=== PATIENT | female | born 1970 | race Caucasian/White ===

== ENCOUNTER 2016-11-01 16:46 | Inpatient (IN) | payer BC ==
[~2016-11-01] VITALS: Ht 157.5 cm; Wt 57.7 kg
[~2016-11-01 16:46] MED LIST: ESCI1TAB10 PO; ESCI1TAB9 PO; FLUT0.0529 NAE; LAMO200T PO; MULT-506 PO; ROPI0.5T15 PO
--- NOTE | 2016-11-01 17:12 | EMERGENCY ROOM VISIT NOTE ---
History Report prepared by Trevon: Kassie Arreaga Under the Supervision of: Dr. Carolin Ware D.O. First contact with patient: 16:55 Chief Complaint: MENTAL HEALTH EVALUATION Stated Complaint: SUICIDAL THOUGHTS,SEVERE DEPRESSION,ANXIETY ATTACK History of Present Illness The patient is a 45 year old female who presents to the Emergency Room with complaints of persistent, worsening depression over the past two weeks. The patient notes that she has a history of depression, but states that for the last month and a half she has been off all of her medications. She states that she has only taken Requip for her restless leg syndrome. The patient states that over the past two weeks she has been increasingly depressed and has had increased thoughts of suicidal ideation. She states that she has been evaluated in the hospital for psychiatric reasons in the past. The patient states that she had been going to [employer] meetings recently. She states that for the past month she had not drank alcohol, but states that last evening she drank alcohol, but denies drinking any today. The patient states that her plan to follow through with her suicidal ideation would be to either do it with firearms or driving her car off the road. She states that she does not own any firearms. The patient states that she has tried harming herself with her alcohol use in the past. She denies any other drug use. The patient states that recently she has had more frequent menstrual cycles over the past several months. Source of History: patient Onset: past two weeks Position: other (global) Quality: other (depression) Timing: worsening, other (persistent) Note: Associated Symptoms: increased thoughts of suicidal ideation, increased alcohol use, stopped taking medications. Review of Systems See HPI for pertinent positives & negatives. A total of 10 systems reviewed and were otherwise negative. Past Medical & Surgical Medical Problems: (1) Anxiety (2) Asthma (3) Bipolar disorder (4) Migraine Surgical Problems: (1) H/O removal of cyst Family History Hypertension Social History Smoking Status: Current Every Day Smoker Alcohol Use: occasionally Drug Use: none Marital Status: Housing Status: lives with family Occupation Status: unemployed Current/Historical Medications Scheduled Multivitamin (Multivitamin), 1 TAB PO DAILY Ropinirole (Requip), 2 MG PO HS Scheduled PRN Fluticasone Propionate (Nasal) (Flonase), 2 SPRAYS DESEAN DAILY PRN for Congestion Allergies Coded Allergies: No Known Allergies (Verified , 3/3/17) Physical Exam Vital Signs Date Time Temp Pulse Resp B/P Pulse Ox O2 Delivery O2 Flow Rate FiO2 11/01/16 18:15 86 16 157/102 97 Room Air 11/01/16 16:51 37.1 104 18 169/104 96 Room Air Physical Exam HEENT: Head - normocephalic and atraumatic Pupils are equal, round, and reactive to light. Extraocular eye muscles are intact, and sclera are anicteric. Nose - moist nasal mucosa without discharge. Mouth - moist buccal mucosa. Oropharynx is nonerythematous and there is no tonsillar exudate or edema noted. Neck: Supple; no JVD, nuchal rigidity, cervical lymphadenopathy. Heart: Regular rate and rhythm. There is a normal S1 and S2 with no murmurs, clicks, or gallops appreciated. Lungs: Clear to auscultation bilaterally with no wheezes, rales, or rhonchi. Abdomen: Soft, completely nontender, nondistended, with good bowel sounds. There are no palpable pulsatile masses or hepatosplenomegaly. There is no guarding, rigidity, or rebound noted. Extremities: No evidence of cyanosis, clubbing, or edema. There are easily palpable peripheral pulses. Skin: warm and dry with good turgor and no rashes. Psych: Tearful at times admits to suicidal ideation with plan Medical Decision & Procedures Laboratory Results 11/01/16 17:31 11/01/16 17:31 Test 11/01/16 17:05 11/01/16 17:31 Urine Color DK YELLOW Urine Appearance CLOUDY (CLEAR) Urine pH 5.5 (4.5-7.5) Urine Specific [place] 1.031 (1.000-1.030) Urine Protein 2+ (NEG) Urine Glucose (UA) NEG (NEG) Urine Ketones 3+ (NEG) Urine Occult Blood 2+ (NEG) Urine Nitrite NEG (NEG) Urine Bilirubin NEG (NEG) Urine Urobilinogen NEG (NEG) Urine Leukocyte Esterase SMALL (NEG) Urine WBC (Auto) 10-30 /hpf (0-5) Urine RBC (Auto) 5-10 /hpf (0-4) Urine Hyaline Casts (Auto) 10-30 /lpf (0-5) Urine Epithelial Cells (Auto) >30 /lpf (0-5) Urine Bacteria (Auto) 1+ (NEG) Urine Test NEG (NEG) Urine Opiates Screen NEG (NEG) Urine Methadone, Qualitative NEG (NEG) Urine Barbiturates NEG (NEG) Urine Phencyclidine (PCP) Level NEG (NEG) Ur Amphetamine/Methamphetamine NEG (NEG) MDMA (Ecstasy) Screen NEG (NEG) Urine Benzodiazepines Screen NEG (NEG) Urine Cocaine Metabolite NEG (NEG) Urine Marijuana (THC) NEG (NEG) Red Blood Count 4.52 M/uL (4.2-5.4) Mean Corpuscular Volume 87.8 fL (80-100) Mean Corpuscular Hemoglobin 31.6 pg (25-34) Mean Corpuscular Hemoglobin Concent 36.0 g/dl (32-36) RDW Standard Deviation 45.2 fL (36.4-46.3) RDW Coefficient of Variation 14.0 % (11.5-14.5) Mean Platelet Volume 8.8 fL (7.4-10.4) Anion Gap 10.0 mmol/L (3-11) Est Creatinine Clear Calc Drug Dose 87.4 ml/min Estimated GFR () 125.1 Estimated GFR (Non- 108.0 BUN/Creatinine Ratio 35.3 (10-20) Calcium Level 9.2 mg/dl (8.5-10.1) Total Bilirubin 0.5 mg/dl (0.2-1) Direct Bilirubin 0.1 mg/dl (0-0.2) Aspartate Amino Transf (AST/SGOT) 18 U/L (15-37) Alanine Aminotransferase (ALT/SGPT) 21 U/L (12-78) Alkaline Phosphatase 101 U/L (45-117) Total Protein 7.4 gm/dl (6.4-8.2) Albumin 4.0 gm/dl (3.4-5.0) Thyroid Stimulating Hormone (TSH) 1.000 uIu/ml (0.300-4.500) Salicylates Level 2.6 mg/dl (2.8-20) Acetaminophen Level < 2 ug/ml (10-30) Ethyl Alcohol mg/dL < 3.0 mg/dl (0-3) Laboratory results per my review. Medications Administered Medications (Trade) Dose Ordered Sig/N[place] Route Start Time Stop Time Status Last Admin Dose Admin Potassium Chloride (Klor-Con M10) 20 meq NOW STAT PO 11/01/16 18:27 11/01/16 18:28 DC 11/01/16 19:02 20 MEQ Procedure The patient was treated with Potassium Chloride 20 meq PO. ED Course 170: Past medical records reviewed. The patient was evaluated in room A6. A complete history and physical exam was performed. Laboratory studies were drawn as above. 182: The patient had a low potassium. She was given Potassium Chloride 20 meq PO. She was felt to be medically cleared. 182: I reevaluated the patient and she is resting comfortably. I discussed the lab results with her. She is clear to be evaluated by Cory Morley. 183: Per Cory Morley, the patient will be ready to be taken to their floor shortly. She is willing to admit herself voluntarily. Medical Decision The patient is a 45 year old female who presents to the ED with worsening depression. Differential diagnosis includes alcohol abuse, mood disorder, thought disorder, suicidal ideation. Lab interpretation: normal white count, stable h&H, potassium of 3, BUN 23, creatinine 0.6, TSH 1, LFTs are normal, glucose 137, negative alcohol, negative Tylenol, negative urine tox screen, salicylate level 2.6, urine is negative, urinalysis appears significantly contaminated. This is a 45-year-old female patient with history of alcohol abuse who presents to the emergency department with worsening depression and suicidal thoughts. The patient had been sober for a month. However, last night, she began to drink alcohol again. She had thoughts of wanting to kill herself. She had planned to run her car off of the road. She admits that she is off all of her psychiatric medications. The patient's potassium was slightly low. She was given oral potassium replacement. Impression Primary Impression: Suicidal ideation Additional Impression: Hypokalemia Scribe Attestation The scribe's documentation has been prepared under my direction and personally reviewed by me in its entirety. I confirm that the note above accurately reflects all work, treatment, procedures, and medical decision making performed by me. Departure Information Dispostion [facility] Acute Care Referrals No Doctor, Assigned (PCP) Problem Qualifiers
[2016-11-01 17:22] LABS: PREG INTERNAL NEGATIVE QC NEG CLEAR BACKGROUND; PREG INTERNAL POSITIVE QC POS CONTROL LINE
[2016-11-01 17:23] LABS: URINE APPEARANCE CLOUDY (CLEAR); URINE BILIRUBIN NEG (NEG); URINE COLOR DK YELLOW; URINE EPITHELIAL CELL AUTO >30 /lpf (0-5); URINE NITRITE NEG (NEG); URINE PH 5.5 (4.5-7.5); URINE SPECIFIC GRAVITY 1.031 (1.000-1.030); UROBILINOGEN NEG (NEG)
[2016-11-01 17:24] LABS: MANUAL MICROSCOPIC REQUIRED? NO; REVIEW REQ? NO
[2016-11-01 17:43] LABS: HEMATOCRIT 39.7 % (37-47); MEAN CELL VOLUME 87.8 fL (80-100); MEAN CORPUSCULAR HEMOGLOBIN 31.6 pg (25-34); MEAN PLATELET VOLUME 8.8 fL (7.4-10.4); PLATELET COUNT 284 K/uL (130-400); RED BLOOD COUNT 4.52 M/uL (4.2-5.4); WHITE BLOOD COUNT 9.73 K/uL (4.8-10.8)
[2016-11-01 17:53] LABS: BENZODIAZEPINE, URINE NEG (NEG); COCAINE,URINE NEG (NEG); PHENCYCLIDINE, URINE NEG (NEG)
[2016-11-01 18:05] LABS: BUN/CREATININE RATIO 35.3 (10-20); CALCIUM 9.2 mg/dl (8.5-10.1); CREATININE 0.65 mg/dl (0.60-1.20)
[2016-11-01 18:15] VITALS: O2SAT 97
[2016-11-01 18:15] LABS: ACETAMINOPHEN < 2 ug/ml (10-30)
[2016-11-01] MEDS ORDERED: POTASSIUM CHLORIDE 10 MEQ TABCR PO STA (18:27)
[2016-11-01] MEDS ORDERED: NURSING VERBAL MED ORDER ONE ×2 (19:00→20:30)
[2016-11-01] MEDS ORDERED: hydrOXYzine HCL 25 MG TAB PO PRN (19:15)
[2016-11-01] MEDS ORDERED: SODIUM CHLORIDE 0.65% NA SOLN 45 ML (OCEAN) PRN (19:15)
[2016-11-01] MEDS ORDERED: BISMUTH SUBSALICYLATE PER ML OMNICELL CHARGE PO PRN (19:15)
[2016-11-01] MEDS ORDERED: ACETAMINOPHEN 325 MG TAB PO PRN (19:15)
[2016-11-01] MEDS ORDERED: MAGNESIUM HYDROXIDE SUSP 30 ML UDC PO PRN (19:15)
[2016-11-01] MEDS ORDERED: ALUMINUM/MAGNESIUM SUSP 30 ML UDC PO PRN (19:15)
[2016-11-01 19:43] VITALS: BP 153/98; PULSE 86; TEMP 37.2; Ht 157.5 cm; Wt 57.7 kg
[2016-11-01] MEDS: ROPINIROLE HCL 1 MG TAB PO SCH (21:12)
[2016-11-01] MEDS: hydrOXYzine HCL 25 MG TAB PO PRN (21:15)
[2016-11-02 06:58] VITALS: BP_SYST 131; BP_SYST 148; BP_DIAS 87; BP_DIAS 97; PULSE 75; PULSE 80; TEMP 36.8
[2016-11-02] MEDS: FLUTICASONE PROPIONATE NA SPR 16 GM BTL SCH (08:42)
[2016-11-02] MEDS: MULTIVITAMIN TAB PO SCH (08:42)
[2016-11-02] MEDS: NICOTINE 21 MG/24 HR TDSY TD SCH (08:42)
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
[2016-11-02] MEDS: hydrOXYzine HCL 25 MG TAB PO PRN (21:41)
[2016-11-02] MEDS: ROPINIROLE HCL 1 MG TAB PO SCH (21:41)
[2016-11-03 06:48] VITALS: BP_SYST 150; BP_SYST 151; BP_DIAS 87; BP_DIAS 94; PULSE 65; PULSE 72; TEMP 37
[2016-11-03] MEDS: NICOTINE 21 MG/24 HR TDSY TD SCH (07:46)
[2016-11-03] MEDS: MULTIVITAMIN TAB PO SCH (07:46)
[2016-11-03] MEDS: FLUTICASONE PROPIONATE NA SPR 16 GM BTL SCH (07:46)
--- NOTE | 2016-11-03 07:58 | Psychiatric Progress Notes ---
Progress Note Date of Service Nov 03, 2016. Interval History Violetta Pool is a 45-year-old female who lives in [place], has a history of bipolar type II, cluster B traits, alcohol dependence, anxiety disorder not otherwise specified, and noncompliance with treatment who presented to the emergency room with suicidal thoughts to shoot herself or drive her car off the road and was admitted on a 201 voluntary commitment. She dropped out of treatment and stop medications a couple of months ago. Chief Complaint "The groups have been good, trying to make myself talk, be honest". Subjective Patient was seen & assessed interval progress reviewed with nursing. Staff report she slept well with hydroxyzine, is hyperverbal and labile at times, laughing and then crying, and continues to report SI. She told staff she wished she had access to a gun. She talked about her financial strain, and ongoing problems with her whom she is . She is refusing a meeting with her ex/, but wants a meeting with her AA sponsor. She is bonding with her peers. She says she is pushing herself to talk in groups, as her AA sponsor encouraged her to be honest and try to get the most she can out of treatment. She says she is "being honest, which means dropping the f-bomb a lot, but if shit doesn't change, I'm gonna ...it needs to get fixed." She has been processing her reluctance to take medications, which she attributes to trying many medications over 30 years and feeling they didn't work for her, "every f---ink antidepressant on the face of the planet." Also feels she has "tried everything you're supposed to, exercising and everything, and it didn't work." She read the information on Depakote and is not sure she wants to try it. Asked multiple questions about it, and ultimately agreed to a trial. She is upset that "I have friends who are alcoholics and take Ativan and Xanax and stuff," and is upset that no one will give her benzos, saying "I've already tried all these mood stabilizers, why not take a more aggressive approach?" She reports SI is "the same, I woke up having a panic attack," and feels anxious thinking that "I have to leave." She says the treatment here is helpful, but she is worried about when she leaves and how she'll cope, due to financial problems and not knowing how to cope. She feels she needs to ask for financial help, but doesn't know where to go for that. Review of Systems +headache Sleep Information Total Hours of Sleep: 7.75 Meal Information Percent of Breakfast Consumed: 100 Percent of Lunch Consumed: 75 Percent of Dinner Consumed: 60 Mental Status Exam During interview pt is: alert and oriented, cooperative Appearance: appropriately dressed, other (finger and toenails painted red, bright lipstick, haird styled in side bun, carrying multiple beverages) Eye contact is: fair Motor behavior is: steady gait & station, no abnormal motor movements Speech: normal in rate, rhythm & volume (hyperverbal) Affect: other (dramatic, full range) Mood is: depressed Thought process: circumstantial Thought content: reality based without delusions Suicidal thought are: present, Plan: present, Intent: present (able to contract for safety on the unit, but not outside the hospital) Homicidal thoughts are: denied Hallucinations: denies auditory, denies visual Intelligence estimated to be: consistent with level of education Insight: impaired Judgement: impaired Impression white female with a history of bipolar type II, anxiety not otherwise specified, alcohol abuse, and cluster B traits who is been noncompliant with outpatient treatment at presents with worsening mood and suicidality after relapsing on alcohol and taking herself off medications. Inpatient treatment is recommended due to the risk of harm if discharged. Plan (1) Suicidal ideation -Every 15 minute checks for safety -Attend groups and participate in therapy -Work on healthy coping skills and her discharge safety plan -She is willing to have a family meeting with her AA sponsor, Imani. -Will need referral for outpatient providers - interested in [facility], and Dr Thompson. May also benefit from case management, if eligible. (2) Bipolar disorder -Discussed options for treatment, reviewing mood stabilizers, all of which she stated she had tried before and were ineffective, with the exception of Depakote. She is not sure if she wants to take medication, but discussed its role in treating mood and anxiety symptoms, and gave her a patient handout on the medication to review. 3/5 - Agreed to trial of Depakote. Will start 250mg bid and can consolidate to bedtime at discharge to limit daytime sedation. (3) Anxiety -Hydroxyzine as needed for anxiety and sleep -No controlled substances given severe substance abuse issues -Recommended gabapentin for off label treatment of anxiety which may also help with alcoholism and mood, which she declined. -Could consider a trial of an SSRI, but would have to be on a good mood stabilizer first decrease the risk of destabilizing mood or causing nuzhat. 3/5 - Asking for benzos, reviewed reasons why contraindicated, including alcoholism, risk of abuse, tolerance, etc. Would not recommend prescribing benzos given high risk of negative outcome. (4) Alcohol abuse The patient's AUDIT score suggests problematic drinking (Zone III WHO). Brief intervention was offered and accepted Intervention was greater than 5 min in length. Brief interventions include: 1. Assess Readiness to Quit, 2. Advise: Help Patient to Reduce or Abstain from Alcohol, 3. Agree: Set Specific, Feasible Goals, 4. Assist: Anticipate barriers, Problem-Solving Solutions. Social work to 5. Arrange: Referrals to appropriate treatment. Summary of intervention: The patient is in contemplation stage with regards to transtheoretical model of change. The patient is advised to decrease alcohol consumption due to depressant effects and risk of interactions with prescription medications. The patient agreed to continue with AA and consider IOP, and will be provided with recovery materials to continue to education self on how to cope with their condition without drinking. She refused recommendations for inpatient rehabilitation. (5) Cluster B traits Refer for outpatient therapy. Discharge / Aftercare Planning Primary Care Physician: Name: none Psychiatrist: Name: none Therapist: Name: none Paver Layer: Name: none Visit Code E&M Code: 21907 Inventory Assets Strengths: "Right now, 0." Risk Factors Assessment : Yes /single/: Yes Higher / Fall in social status: No Health problems: Yes Mental Health Diagnoses: Yes Substance use disorders: Yes Previous attempt: No Previous psychiatric stay: Yes Hopelessness: Yes Smoker: Yes Protective Factors Assessment : No Responsible for young children: Yes Employed: No Stable relationships: No Supportive family: Yes Good rapport with provider: No Data Vital Signs Last 24 Hrs: Date Time Temp Pulse Resp B/P Pulse Ox O2 Delivery O2 Flow Rate FiO2 11/03/16 06:48 37.0 65 16 150/87 72 151/94 Meds Administered Last 24 Hrs: Meds Administered (Past 24Hrs) Medications (Trade) Dose Ordered Sig/Nemesio Route Start Time Stop Time Status Last Admin Dose Admin Potassium Chloride (Klor-Con M10) 20 meq NOW STAT PO 11/01/16 18:27 11/01/16 18:28 DC 11/01/16 19:02 20 MEQ Acetaminophen (Tylenol Tab) 650 mg Q4H PRN PO 11/01/16 19:15 12/01/16 19:14 11/02/16 10:26 650 MG Hydroxyzine HCl (Vistaril Tab) 50 mg HSZ PRN PO 11/01/16 19:15 12/01/16 19:14 11/02/16 21:41 50 MG Multivitamins (Multivitamin Tab) 1 tab QAM PO 11/02/16 09:00 12/02/16 08:59 11/03/16 07:46 1 TAB Ropinirole HCl (Requip Tab) 2 mg HS PO 11/01/16 22:00 12/01/16 21:59 11/02/16 21:41 2 MG Fluticasone Propionate (Flonase Nasal Ramsey) 2 sprays DAILY NA 11/02/16 09:00 12/02/16 08:59 11/03/16 07:46 2 SPRAYS
[2016-11-03] MEDS: NAPROXEN 250 MG TAB PO PRN (12:49)
[2016-11-03] MEDS ORDERED: DIVALPROEX SODIUM 250 MG DELAY REL TAB PO ONE (13:30)
[2016-11-03] MEDS: ROPINIROLE HCL 1 MG TAB PO SCH (20:54)
[2016-11-03] MEDS: DIVALPROEX SODIUM 250 MG DELAY REL TAB PO SCH (20:55)
[2016-11-03] MEDS: hydrOXYzine HCL 25 MG TAB PO PRN (20:56)
[2016-11-04 06:54] VITALS: BP_SYST 134; BP_SYST 154; BP_DIAS 86; BP_DIAS 92; PULSE 65; PULSE 71; TEMP 36.8
[2016-11-04] MEDS: NICOTINE 21 MG/24 HR TDSY TD SCH (09:00)
[2016-11-04] MEDS: MULTIVITAMIN TAB PO SCH (09:16)
[2016-11-04] MEDS: FLUTICASONE PROPIONATE NA SPR 16 GM BTL SCH (09:16)
[2016-11-04] MEDS: DIVALPROEX SODIUM 250 MG DELAY REL TAB PO SCH (09:16)
--- NOTE | 2016-11-04 14:35 | Psychiatric Progress Notes ---
Progress Note Date of Service Nov 04, 2016. Interval History Violetta Pool is a 45-year-old female who lives in [place], has a history of bipolar type II, cluster B traits, alcohol dependence, anxiety disorder not otherwise specified, and noncompliance with treatment who presented to the emergency room with suicidal thoughts to shoot herself or drive her car off the road and was admitted on a 201 voluntary commitment. She dropped out of treatment and stop medications a couple of months ago. Chief Complaint "Pretty good". Subjective Patient was seen & assessed interval progress reviewed with Treatment Team. The patient state she is feeling grateful after her meeting with her AA sponsor, but reports feeling guilty that "there's nothing I can do for these nice people who are helping me." She agreed to referrals to [facility], but is refusing [facility], where she has been seen before, saying "within two months they had 5 different therapists." She also wants a trauma therapist, and says a peer was talking about it in group and she thinks it might help her. She plans to continue with , and her sponsor is going to check with a friend who is an orchard worker to help her with her divorce settlement, as she wants more money from him so she can be "financially stable." She fears her will try to "take my daughter away from me." She says she is a "great mom," and denies that she has ever drank alcohol when she had her daughter with her. She says her suicidal thoughts are "awful," and is angry that staff asked her if the thoughts were more "passive," saying "I woke up and wanted to kill myself, I want to kill myself now!" She says nothing is helping with her mood, but she feels safe here, and doesn't think she will hurt herself here. She reports feeling angry and frustrated, "I've tried all this sh-t, cognitive whatever, if I was able to do that, I wouldn't be here!" Reports poor sleep, irritability, high anxiety, and anger/frustration. She wants to know if she can take "something else for sleep," doesn't want Ambien, says melatonin was ineffective , and hydroxyzine helps her to fall asleep, but not stay asleep. Discussed trial of trazodone, doesn't think she has tried it before. Sleep Information Total Hours of Sleep: 6.00 Meal Information Percent of Breakfast Consumed: 50 Percent of Lunch Consumed: 100 Percent of Dinner Consumed: 80 Mental Status Exam During interview pt is: alert and oriented, cooperative Appearance: appropriately dressed, other (finger and toenails painted red, bright lipstick, haird styled in side bun, carrying multiple beverages) Eye contact is: fair Motor behavior is: steady gait & station, no abnormal motor movements Speech: normal in rate, rhythm & volume (hyperverbal) Affect: other (dramatic, full range) Mood is: depressed Thought process: circumstantial Thought content: reality based without delusions Suicidal thought are: present, Plan: present, Intent: present (able to contract for safety on the unit, but not outside the hospital) Homicidal thoughts are: denied Hallucinations: denies auditory, denies visual Intelligence estimated to be: consistent with level of education Insight: impaired Judgement: impaired Impression white female with a history of bipolar type II, anxiety not otherwise specified, alcohol abuse, and cluster B traits who is been noncompliant with outpatient treatment at presents with worsening mood and suicidality after relapsing on alcohol and taking herself off medications. Inpatient treatment is recommended due to the risk of harm if discharged. Plan (1) Suicidal ideation -Every 15 minute checks for safety -Attend groups and participate in therapy -Work on healthy coping skills and her discharge safety plan -She is willing to have a family meeting with her AA sponsor, Imani. -Will need referral for outpatient providers. May also benefit from case management, if eligible. (2) Bipolar disorder -Discussed options for treatment, reviewing mood stabilizers, all of which she stated she had tried before and were ineffective, with the exception of Depakote. She is not sure if she wants to take medication, but discussed its role in treating mood and anxiety symptoms, and gave her a patient handout on the medication to review. 3/5 - Agreed to trial of Depakote. Will start 250mg bid and can consolidate to bedtime at discharge to limit daytime sedation. 3/6 - Racing thoughts and irritability continue, continue Depakote. Requesting to try something else for sleep, as hydroxyzine helped her fall asleep, but still waking up frequently. Will order trazodone 50mg qhs prn. (3) Anxiety -Hydroxyzine as needed for anxiety and sleep -No controlled substances given severe substance abuse issues -Recommended gabapentin for off label treatment of anxiety which may also help with alcoholism and mood, which she declined. -Could consider a trial of an SSRI, but would have to be on a good mood stabilizer first decrease the risk of destabilizing mood or causing nuzhat. 11/03 - Asking for benzos, reviewed reasons why contraindicated, including alcoholism, risk of abuse, tolerance, etc. Would not recommend prescribing benzos given high risk of negative outcome. (4) Alcohol abuse The patient's AUDIT score suggests problematic drinking (Zone III WHO). Brief intervention was offered and accepted Intervention was greater than 5 min in length. Brief interventions include: 1. Assess Readiness to Quit, 2. Advise: Help Patient to Reduce or Abstain from Alcohol, 3. Agree: Set Specific, Feasible Goals, 4. Assist: Anticipate barriers, Problem-Solving Solutions. Social work to 5. Arrange: Referrals to appropriate treatment. Summary of intervention: The patient is in contemplation stage with regards to transtheoretical model of change. The patient is advised to decrease alcohol consumption due to depressant effects and risk of interactions with prescription medications. The patient agreed to continue with AA and consider IOP, and will be provided with recovery materials to continue to education self on how to cope with their condition without drinking. She refused recommendations for inpatient rehabilitation. 11/04 - meeting held with AA sponsor. Willing for IOP. (5) Cluster B traits Rule out BPD. Refer for outpatient therapy. Discharge / Aftercare Planning Primary Care Physician: Name: none Psychiatrist: Name: none Therapist: Name: none Stripe Marker: Name: none Visit Code E&M Code: 98338 Inventory Assets Strengths: "Right now, 0. Risk Factors Assessment : Yes /single/: Yes Higher / Fall in social status: No Health problems: Yes Mental Health Diagnoses: Yes Substance use disorders: Yes Previous attempt: No Previous psychiatric stay: Yes Hopelessness: Yes Smoker: Yes Protective Factors Assessment : No Responsible for young children: Yes Employed: No Stable relationships: No Supportive family: Yes Good rapport with provider: No Data Vital Signs Last 24 Hrs: Date Time Temp Pulse Resp B/P Pulse Ox O2 Delivery O2 Flow Rate FiO2 11/04/16 06:54 36.8 65 16 134/86 71 154/92 Meds Administered Last 24 Hrs: Meds Administered (Past 24Hrs) Medications (Trade) Dose Ordered Sig/Nemesio Route Start Time Stop Time Status Last Admin Dose Admin Divalproex Sodium (Depakote Delay Rel Tab) 250 mg BID PO 11/03/16 22:00 12/03/16 21:59 11/04/16 09:16 250 MG Divalproex Sodium (Depakote Delay Rel Tab) 250 mg TODAY@1330 ONCE PO 11/03/16 13:30 11/03/16 13:31 DC 11/03/16 12:31 250 MG Naproxen (Naprosyn Tab) 250 mg BID PRN PO 11/03/16 12:15 12/03/16 12:14 11/03/16 12:49 250 MG
[2016-11-04] MEDS: ROPINIROLE HCL 1 MG TAB PO SCH (21:18)
[2016-11-04] MEDS: DIVALPROEX SODIUM 500 MG DELAY RELEASE TAB PO SCH (21:19)
[2016-11-04] MEDS: hydrOXYzine HCL 25 MG TAB PO PRN (21:21)
[2016-11-04] MEDS ORDERED: NURSING VERBAL MED ORDER ONE (21:45)
[2016-11-04] MEDS: TRAZODONE HCL 50 MG TAB PO PRN (22:06)
[2016-11-05 07:10] VITALS: BP_SYST 128; BP_DIAS 72; BP_DIAS 80; PULSE 66; PULSE 78; TEMP 37
[2016-11-05] MEDS: NICOTINE 21 MG/24 HR TDSY TD SCH (09:00)
[2016-11-05] MEDS: FLUTICASONE PROPIONATE NA SPR 16 GM BTL SCH (09:08)
[2016-11-05] MEDS: DIVALPROEX SODIUM 250 MG DELAY REL TAB PO SCH (09:08)
[2016-11-05] MEDS: MULTIVITAMIN TAB PO SCH (09:09)
--- NOTE | 2016-11-05 12:40 | Psychiatric Progress Notes ---
Progress Note Date of Service Nov 05, 2016. Interval History Violetta Pool is a 45-year-old female who lives in [place], has a history of bipolar type II, cluster B traits, alcohol dependence, anxiety disorder not otherwise specified, and noncompliance with treatment who presented to the emergency room with suicidal thoughts to shoot herself or drive her car off the road and was admitted on a 201 voluntary commitment. She dropped out of treatment and stop medications a couple of months ago. Chief Complaint "Crap, I didn't get to take a shower yet, that trazodone made me tired". Subjective Patient was seen & assessed interval progress reviewed with nursing. Staff report she was upset after her family meeting with her AA sponsor yesterday, saying she didn't think her length of stay of 1-3 days was long enough. She attended groups and rated her mood 3/10. She asked staff to remove her roommate' s pens from the room as she was worried that if she woke up in a panic, she might hurt herself. Today she says she is frustrated, wants to know if she can have a list of outpatient psychiatrists, saying she is angry that she was told the available outpatient providers are "all booked, well of course they're booked if you're referring every G--d---ed person to the same place!" She is wanting a trauma therapist, substance abuse treatment, and med management, but doesn't want to go to places she's been seen previously. She reports mood is " so groggy, and my sinuses..." She has had URI symptoms for a week or more, and they are not getting worse. She says she "can't let myself think, then I get teary-eyed." She is vague when asked to clarify this, saying "everyone is really nice here in the group and stuff," but worries that "everyone hates me, just want to crawl in a hole." She is going to groups and finds them helpful. She says she "wants to get better," but at times feels "I can't do this, don't remember a time when I didn't feel like this." She continues to endorse SI, saying she feels hopeless at times that she will ever feel better. She reports racing and jumbled thoughts, "it's like a tornado in my head," with impaired concentration, and difficulty staying on topic. She is looking forward to anger management as she feels "I"m not allowed to be angry, stand up for myself." Sleep Information Total Hours of Sleep: 7.50 Meal Information Percent of Breakfast Consumed: 90 Percent of Lunch Consumed: 0 Percent of Dinner Consumed: 50 Mental Status Exam During interview pt is: alert and oriented, cooperative Appearance: appropriately dressed, other (dyed blonde hair piled on top of head , fingernails and toenails painted red) Eye contact is: fair Motor behavior is: steady gait & station, no abnormal motor movements Speech: normal in rate, rhythm & volume Affect: other (dramatic, full range, tearful at times, bubbly at others times) Mood is: depressed, other ("all over the place") Thought process: circumstantial Thought content: reality based without delusions Suicidal thought are: present, Plan: present, Intent: present (able to contract for safety on the unit, but not outside the hospital) Homicidal thoughts are: denied Hallucinations: denies auditory, denies visual Intelligence estimated to be: consistent with level of education Insight: impaired Judgement: impaired Impression white female with a history of bipolar type II, anxiety not otherwise specified, alcohol abuse, and cluster B traits who is been noncompliant with outpatient treatment and presents with worsening mood and suicidality after relapsing on alcohol and taking herself off medications. Inpatient treatment is recommended due to the risk of harm if discharged. Plan (1) Suicidal ideation -Every 15 minute checks for safety -Attend groups and participate in therapy -Work on healthy coping skills and her discharge safety plan -She is willing to have a family meeting with her AA sponsor, Imani. -Will need referral for outpatient providers. May also benefit from case management, if eligible. (2) Bipolar disorder -Discussed options for treatment, reviewing mood stabilizers, all of which she stated she had tried before and were ineffective, with the exception of Depakote. She is not sure if she wants to take medication, but discussed its role in treating mood and anxiety symptoms, and gave her a patient handout on the medication to review. 3/5 - Agreed to trial of Depakote. Will start 250mg bid and can consolidate to bedtime at discharge to limit daytime sedation. 11/04 - Racing thoughts and irritability continue, continue Depakote. Requesting to try something else for sleep, as hydroxyzine helped her fall asleep, but still waking up frequently. Will order trazodone 50mg qhs prn. (3) Anxiety -Hydroxyzine as needed for anxiety and sleep -No controlled substances given severe substance abuse issues -Recommended gabapentin for off label treatment of anxiety which may also help with alcoholism and mood, which she declined. -Could consider a trial of an SSRI, but would have to be on a good mood stabilizer first decrease the risk of destabilizing mood or causing nuzhat. 11/03 - Asking for benzos, reviewed reasons why contraindicated, including alcoholism, risk of abuse, tolerance, etc. Would not recommend prescribing benzos given high risk of negative outcome. (4) Alcohol abuse The patient's AUDIT score suggests problematic drinking (Zone III WHO). Brief intervention was offered and accepted Intervention was greater than 5 min in length. Brief interventions include: 1. Assess Readiness to Quit, 2. Advise: Help Patient to Reduce or Abstain from Alcohol, 3. Agree: Set Specific, Feasible Goals, 4. Assist: Anticipate barriers, Problem-Solving Solutions. Social work to 5. Arrange: Referrals to appropriate treatment. Summary of intervention: The patient is in contemplation stage with regards to transtheoretical model of change. The patient is advised to decrease alcohol consumption due to depressant effects and risk of interactions with prescription medications. The patient agreed to continue with AA and consider IOP, and will be provided with recovery materials to continue to education self on how to cope with their condition without drinking. She refused recommendations for inpatient rehabilitation. 11/04 - meeting held with AA sponsor. Willing for IOP. (5) Cluster B traits Rule out BPD. Refer for outpatient therapy. Discharge / Aftercare Planning Primary Care Physician: Name: none Psychiatrist: Name: none Therapist: Name: none Heavy Cleaner: Name: none Visit Code E&M Code: 44502 Inventory Assets Strengths: "Right now, 0." Risk Factors Assessment : Yes /single/: Yes Higher / Fall in social status: No Access to guns: No Health problems: Yes Mental Health Diagnoses: Yes Substance use disorders: Yes Previous attempt: No Previous psychiatric stay: Yes Hopelessness: Yes Smoker: Yes Protective Factors Assessment Temple beliefs: No : No Responsible for young children: Yes Employed: No Stable relationships: No Supportive family: Yes Good rapport with provider: No Data Vital Signs Last 24 Hrs: Date Time Temp Pulse Resp B/P Pulse Ox O2 Delivery O2 Flow Rate FiO2 11/05/16 07:10 37.0 66 16 128/72 78 128/80 Meds Administered Last 24 Hrs: Meds Administered (Past 24Hrs) Medications (Trade) Dose Ordered Sig/Nemesio Route Start Time Stop Time Status Last Admin Dose Admin Divalproex Sodium (Depakote Delay Rel Tab) 250 mg BID PO 11/03/16 22:00 11/04/16 14:38 DC 11/04/16 09:16 250 MG Divalproex Sodium (Depakote Delay Rel Tab) 250 mg TODAY@1330 ONCE PO 11/03/16 13:30 11/03/16 13:31 DC 11/03/16 12:31 250 MG Naproxen (Naprosyn Tab) 250 mg BID PRN PO 11/03/16 12:15 12/03/16 12:14 11/03/16 12:49 250 MG Divalproex Sodium (Depakote Delay Rel Tab) 250 mg QAM PO 11/05/16 09:00 12/05/16 08:59 11/05/16 09:08 250 MG Divalproex Sodium (Depakote Delay Rel Tab) 500 mg HS PO 11/04/16 22:00 12/04/16 21:59 11/04/16 21:19 500 MG Trazodone HCl (Desyrel Tab) 50 mg HS PRN PO 11/04/16 21:45 12/04/16 21:44 11/04/16 22:06 50 MG
[2016-11-05] MEDS: DIVALPROEX SODIUM 500 MG DELAY RELEASE TAB PO SCH (21:22)
[2016-11-05] MEDS: ROPINIROLE HCL 1 MG TAB PO SCH (21:22)
[2016-11-05] MEDS: TRAZODONE HCL 50 MG TAB PO PRN (21:27)
[2016-11-06 06:47] VITALS: BP_SYST 148; BP_SYST 149; BP_DIAS 89; BP_DIAS 96; PULSE 73; PULSE 78; TEMP 37
[2016-11-06] MEDS: NICOTINE 21 MG/24 HR TDSY TD SCH (08:19)
[2016-11-06] MEDS: DIVALPROEX SODIUM 250 MG DELAY REL TAB PO SCH (08:20)
[2016-11-06] MEDS: MULTIVITAMIN TAB PO SCH (08:20)
[2016-11-06] MEDS: FLUTICASONE PROPIONATE NA SPR 16 GM BTL SCH (08:20)
--- NOTE | 2016-11-06 12:16 | Psychiatric Progress Notes ---
Progress Note Date of Service Nov 06, 2016. Interval History Violetta Pool is a 45-year-old female who lives in [place], has a history of bipolar type II, cluster B traits, alcohol dependence, anxiety disorder not otherwise specified, and noncompliance with treatment who presented to the emergency room with suicidal thoughts to shoot herself or drive her car off the road and was admitted on a 201 voluntary commitment. She dropped out of treatment and stop medications a couple of months ago. Chief Complaint "The groups have been really good today". Subjective Patient was seen & assessed interval progress reviewed with Treatment Team. Staff report she has been working on aftercare, had requested a trauma therapist , but when a referral was made, they stated she needed to be sober for 90 days before they could accept her. She has referrals pending for aftercare. She was initially reluctant to come to the interview room, stating she wanted to stay and sit with a male peer who was meeting with staff. She reports nightmares of her daughter being taken away from her. She says unsolicited "there's nothing I' ve done that she could be taken away from me, I'd never drink in front of her." Se is working on mindfulness techniques which are helpful. She had a good visit from her AA sponsor. She is working on plans to have friends stay with her as she doesn't want to be home alone after discharge, and says her sponsor offered for her to stay with her. She feels worse at night, worrying about nightmares so postponing sleep. She reports poor sleep, but nursing staff report 7.5 hours for the past two nights. She reports mood is "a bit better," and when asked about SI, says "I don't know, I'm trying really hard not to think that way. I don't want to. I just have to believe that things will get better, but it's hard." She admits to thinking "what would be the easiest way to do it?" She has thought of driving her car off a bridge. Sleep Information Total Hours of Sleep: 7.50 Meal Information Percent of Breakfast Consumed: 50 Percent of Lunch Consumed: 85 Percent of Dinner Consumed: 100 Mental Status Exam During interview pt is: alert and oriented, cooperative Appearance: appropriately dressed, other (dyed blonde hair piled on top of head , fingernails and toenails painted red, bright lipstick, hair in side bun with bright flower hairtye, dressed in all black) Eye contact is: fair Motor behavior is: steady gait & station, no abnormal motor movements Speech: normal in rate, rhythm & volume Affect: other (dramatic, full range, tearful at times, bubbly at others times) Mood is: depressed, other ("all over the place") Thought process: circumstantial Thought content: reality based without delusions Suicidal thought are: present, Plan: present, Intent: present (able to contract for safety on the unit, but not outside the hospital) Homicidal thoughts are: denied Hallucinations: denies auditory, denies visual Intelligence estimated to be: consistent with level of education Insight: impaired Judgement: impaired Impression white female with a history of bipolar type II, anxiety not otherwise specified, alcohol abuse, and cluster B traits who is been noncompliant with outpatient treatment and presents with worsening mood and suicidality after relapsing on alcohol and taking herself off medications. Inpatient treatment is recommended due to the risk of harm if discharged. Plan (1) Suicidal ideation -Every 15 minute checks for safety -Attend groups and participate in therapy -Work on healthy coping skills and her discharge safety plan -She is willing to have a family meeting with her AA sponsor, Imani. -Will need referral for outpatient providers. May also benefit from case management, if eligible. (2) Bipolar disorder -Discussed options for treatment, reviewing mood stabilizers, all of which she stated she had tried before and were ineffective, with the exception of Depakote. She is not sure if she wants to take medication, but discussed its role in treating mood and anxiety symptoms, and gave her a patient handout on the medication to review. 3 - Agreed to trial of Depakote. Will start 250mg bid and can consolidate to bedtime at discharge to limit daytime sedation. 11/04 - Racing thoughts and irritability continue, continue Depakote. Requesting to try something else for sleep, as hydroxyzine helped her fall asleep, but still waking up frequently. Will order trazodone 50mg qhs prn. 11/06 - Depakote level due 11/09. (3) Anxiety -Hydroxyzine as needed for anxiety and sleep -No controlled substances given severe substance abuse issues -Recommended gabapentin for off label treatment of anxiety which may also help with alcoholism and mood, which she declined. -Could consider a trial of an SSRI, but would have to be on a good mood stabilizer first decrease the risk of destabilizing mood or causing nuzhat. 11/03 - Asking for benzos, reviewed reasons why contraindicated, including alcoholism, risk of abuse, tolerance, etc. Would not recommend prescribing benzos given high risk of negative outcome. (4) Alcohol abuse The patient's AUDIT score suggests problematic drinking (Zone III WHO). Brief intervention was offered and accepted Intervention was greater than 5 min in length. Brief interventions include: 1. Assess Readiness to Quit, 2. Advise: Help Patient to Reduce or Abstain from Alcohol, 3. Agree: Set Specific, Feasible Goals, 4. Assist: Anticipate barriers, Problem-Solving Solutions. Social work to 5. Arrange: Referrals to appropriate treatment. Summary of intervention: The patient is in contemplation stage with regards to transtheoretical model of change. The patient is advised to decrease alcohol consumption due to depressant effects and risk of interactions with prescription medications. The patient agreed to continue with AA and consider IOP, and will be provided with recovery materials to continue to education self on how to cope with their condition without drinking. She refused recommendations for inpatient rehabilitation. 11/04 - meeting held with AA sponsor. Willing for IOP. 11/06 - Referral being made to [facility] for outpatient substance abuse treatment. (5) Cluster B traits Rule out BPD. Refer for outpatient therapy. Discharge / Aftercare Planning Primary Care Physician: Name: none Psychiatrist: Name: none Therapist: Name: none Accountant Clerk: Name: none Visit Code E&M Code: 70292 Inventory Assets Strengths: "Right now, 0. Risk Factors Assessment : Yes /single/: Yes Higher / Fall in social status: No Access to guns: No Health problems: Yes Mental Health Diagnoses: Yes Substance use disorders: Yes Previous attempt: No Previous psychiatric stay: Yes Hopelessness: Yes Smoker: Yes Protective Factors Assessment Zoroastrian beliefs: No : No Responsible for young children: Yes Employed: No Stable relationships: No Supportive family: Yes Good rapport with provider: No Data Vital Signs Last 24 Hrs: Date Time Temp Pulse Resp B/P Pulse Ox O2 Delivery O2 Flow Rate FiO2 11/06/16 06:47 37.0 73 16 148/89 78 149/96 Meds Administered Last 24 Hrs: Meds Administered (Past 24Hrs) Medications (Trade) Dose Ordered Sig/Nemesio Route Start Time Stop Time Status Last Admin Dose Admin Divalproex Sodium (Depakote Delay Rel Tab) 250 mg QAM PO 11/05/16 09:00 12/05/16 08:59 11/06/16 08:20 250 MG Divalproex Sodium (Depakote Delay Rel Tab) 500 mg HS PO 11/04/16 22:00 12/04/16 21:59 11/05/16 21:22 500 MG Trazodone HCl (Desyrel Tab) 50 mg HS PRN PO 11/04/16 21:45 12/04/16 21:44 11/05/16 21:27 50 MG
[2016-11-06] MEDS: ROPINIROLE HCL 1 MG TAB PO SCH (21:47)
[2016-11-06] MEDS: DIVALPROEX SODIUM 500 MG DELAY RELEASE TAB PO SCH (21:47)
[2016-11-06] MEDS: TRAZODONE HCL 50 MG TAB PO PRN (21:51)
[2016-11-07 06:53] VITALS: BP_SYST 148; BP_SYST 151; BP_DIAS 90; BP_DIAS 94; PULSE 66; PULSE 75; TEMP 36.9
[2016-11-07] MEDS: NICOTINE 21 MG/24 HR TDSY TD SCH (08:19)
[2016-11-07] MEDS: DIVALPROEX SODIUM 250 MG DELAY REL TAB PO SCH (08:20)
[2016-11-07] MEDS: FLUTICASONE PROPIONATE NA SPR 16 GM BTL SCH (08:20)
[2016-11-07] MEDS: MULTIVITAMIN TAB PO SCH (08:20)
[2016-11-07] MEDS: NAPROXEN 250 MG TAB PO PRN (10:55)
[2016-11-07] MEDS ORDERED: DPKEC500 PO (11:09)
[2016-11-07] MEDS ORDERED: ROPI2TAB6 PO (11:09)
[2016-11-07] MEDS ORDERED: DPKEC250 PO (11:09)
[2016-11-07] MEDS ORDERED: DSY50 PO (11:09)
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
== END 2016-11-07 14:25 | disposition home or self-care (01) | DRG 885 ==
LOC: ENRESERVTM → ENRESERVDT → C.EDB 16:48 → C.MHU 19:33
PROVIDERS: ADMIT Psychiatry & Neurology Psychiatry; ATTEND Psychiatry & Neurology Psychiatry
DX: F31.81 Bipolar II disorder (principal); R45.851 Suicidal ideations; E87.6 Hypokalemia; F10.20 Alcohol dependence, uncomplicated; F41.9 Anxiety disorder, unspecified; F60.9 Personality disorder, unspecified; G25.81 Restless legs syndrome; J45.909 Unspecified asthma, uncomplicated; F17.200 Nicotine dependence, unspecified, uncomplicated; Z91.19 Patient's noncompliance with other medical treatment and regimen; Z91.14 Patient's other noncompliance with medication regimen; Z91.5 Personal history of self-harm; Z79.899 Other long term (current) drug therapy

== ENCOUNTER 2019-06-07 06:07 | Observation (INO) ==
--- NOTE | 2019-06-03 16:38 | Anesthesiology Consultation ---
Date of Service June 03, 2019 Assessment & Plan Chart Review Chart Review: Acceptable Risk for Surgery and Patient NOT seen in Pre Admission Testing Consults Requested none ASA [id number] Proposed Anesthesia Anesthesia Type: General History Surgery Operation Date: 06/07/19 07:30 Proposed Procedures p C5-C6 Anterior Cervical Discectomy and Fusion, C6-C7 with Iliac Crest Bone Graft - Ayaan Soliman DO s Iliac Crest Bone Graft - Ayaan Soliman DO Height/Weight Height: 5 ft 2 in Weight: 63.503 kg Allergies Allergy/AdvReac Type Severity Reaction Status Date / Time trazodone Allergy Difficulty Verified 06/03/19 11:26 Breathing gabapentin AdvReac Confusion Verified 06/03/19 11:26 lorazepam [From Ativan] AdvReac Confusion Verified 06/03/19 11:26 Medications Home Medications Medication Instructions Recorded Confirmed Last Taken amlodipine 2.5 mg PO QAM 11/23/18 06/03/19 05/22/19 albuterol sulfate 2 puff INHALATION Q4H PRN 05/22/19 06/03/19 Unknown aripiprazole 10 mg PO QPM 05/22/19 06/03/19 05/21/19 cetirizine 10 mg PO DAILY PRN 05/22/19 06/03/19 05/21/19 ibuprofen [Motrin IB] 200 mg PO Q6H PRN 05/22/19 06/03/19 05/22/19 lisinopril-hydrochlorothiazide 1 tab PO QAM 05/22/19 06/03/19 05/22/19 triamcinolone acetonide 2 spray INTRANASAL QAM 05/22/19 06/03/19 05/21/19 ropinirole 2 mg PO HS PRN 05/28/19 06/03/19 Unknown venlafaxine 37.5 mg PO QAM 05/28/19 06/03/19 Unknown calcium polycarbophil [FiberCon] 1,250 mg PO BID 06/03/19 06/03/19 Unknown hydrocodone-acetaminophen 1 tab PO Q6H PRN 06/03/19 06/03/19 Unknown Past Medical History Medical History HTN (hypertension) (Chronic) RLS (restless legs syndrome) (Chronic) Anxiety (Chronic) Depression (Chronic) Migraine (Chronic) Bipolar disorder Current every day smoker ETOH abuse Fibromyalgia GERD (gastroesophageal reflux disease) Temporomandibular joint disorder Tobacco abuse Exercise / Class Metabolic Activity II 4-5 Yardwork/Stairs/Walk up hill Past Family History Family History Other No pertinent family history Past Surgical History Surgical History History of colonoscopy (Chronic) History of delivery History of ovarian cystectomy Past Anesthesia History No Hx of Anesthesia Complications and No Family Hx of Anesthesia Complications History of PONV No Hx of PONV and No Hx of Motion Sickness STOP BANG Total 1 Social History Smoking Status: Current every day smoker tobacco type: cigarettes Smoking cigarettes per day: 15 Do You Dip or Chew Tobacco: No Hx Alcohol Use: No Alcohol type: hard liquor alcohol intake frequency: 3 or more drinks per day Hx Substance Use: No substance use type: does not use Testing Electrocardiogram Date: 11/23/18 Findings: + NSR @ (at 99;biatrial enlargement) Chest X-Ray Date: 06/01/19 Findings: + NAD and + other (emphysematous changes)
--- NOTE | 2019-06-04 16:39 | History and Physical Report ---
DATE OF ADMISSION: 06/04/2019 CHIEF COMPLAINT: Neck pain, arm pain, upper extremity difficulty, paresthesias in working and weakness. HISTORY OF PRESENT ILLNESS: Violetta has a working diagnosis to disc pathology for multiple years, 5 years to be exact, she has failed conservative care, injections and anti-inflammatories traction. She is miserable. PAST MEDICAL HISTORY: Positive for hypertension, stomach ulcers, anxiety, asthma. PAST SURGICAL HISTORY: Laparoscopy, . ALLERGIES: GABAPENTIN AND ATIVAN. MEDICATIONS: Include Effexor, lisinopril, Zyrtec, Nasacort, albuterol. FAMILY HISTORY: Mother with [place]. REVIEW OF SYSTEMS: She admits to muscle weakness and cramping. Denies any weight gain. Denies any fevers, sweats, chills. No chest pain, palpitations. No asthma, wheezing. No nausea, vomiting. She has numbness and tingling. OBJECTIVE: GENERAL: She is 5 feet 2 inches, 145 pounds. VITAL SIGNS: Blood pressure 130/80, pulse 80, respirations 16. HEENT: Pupils react to light and accommodation. Ear, nose and throat clear. CARDIAC: Normal S1, S2. LUNGS: Clear to auscultation. ABDOMEN: Soft, nontender. EXTREMITIES: Cervical spine, has Spurling maneuver and Lhermitte sign. Pain with flexion, extension, upper extremity difficulty with weakness of triceps and building equipment operator strength. SKIN: Intact. IMAGES: Demonstrate 2 level disc pathology and herniation C5-C6 and C6-C7 cervical spine. PLAN: Includes an ACDF of the cervical spine C5-C7 with iliac crest bone graft.
[~2019-06-07 06:07] MED LIST changes: +CEFAZOLIN 2000MG 2,000 MG/15 ML SYR IV SCH; -ESCI1TAB10 PO; -ESCI1TAB9 PO; -FLUT0.0529 NAE; -LAMO200T PO; +LR 15ML/HR IV SCH; -MULT-506 PO; -ROPI0.5T15 PO; +SODIUM CHLORIDE 0.9% 1000ML IV SCH
[2019-06-07] MEDS ORDERED: THROMBIN FOR SOLN 20000 UNIT KIT ONE (06:55)
[2019-06-07] MEDS ORDERED: GELATIN SPONGE SZ 100 ONE (06:55)
[2019-06-07] MEDS ORDERED: BUPIVACAINE/EPINEPHRINE 0.5% MPF 1:200,000 30 ML VIAL ONE (06:55)
[2019-06-07] MEDS ORDERED: BACITRACIN INJ 50,000 UNIT VIAL ONE (06:56)
[2019-06-07] MEDS ORDERED: MIDAZOLAM HCL 1 MG/ML 2ML VIAL ONE (07:07)
[2019-06-07] MEDS ORDERED: fentaNYL citrate 100 MCG/2 ML VIAL ONE (07:07)
--- NOTE | 2019-06-07 07:18 | History & Physical Bridge Note ---
Date of Service June 07, 2019 History & Physical Bridge Note I have examined the patient, reviewed the History & Physical and in the interval since the performance of the History & Physical I have noted the following changes of clinical significance: no changes noted
[2019-06-07] MEDS ORDERED: ePHEDrine sulfate 50 MG/ML AMP IV PRN (07:27)
[2019-06-07] MEDS ORDERED: ATROPINE SULFATE 0.1 MG/ML 10ML SYR IV PRN (07:27)
[2019-06-07] MEDS ORDERED: ONDANSETRON INJ 2 MG/ML 2 ML VIAL ONE (08:26)
[2019-06-07] MEDS ORDERED: DEXAMETHASONE SOD INJ 4 MG/ML VIAL ONE (08:26)
[2019-06-07] MEDS ORDERED: PHENYLEPHRINE 100MCG/ML 5ML SYR ONE (08:26)
[2019-06-07] MEDS ORDERED: LABETALOL HCL IV 5 MG/ML 20ML IV ONE (08:26)
[2019-06-07] MEDS ORDERED: ROCURONIUM BROMIDE 10 MG/ML 5 ML VIAL ONE (08:26)
[2019-06-07] MEDS ORDERED: GLYCOPYRROLATE 0.2 MG/ML VIAL ONE (08:26)
[2019-06-07] MEDS ORDERED: NEOSTIGMINE METHYLSULFATE 5 MG/5 ML SYR ONE (08:26)
[2019-06-07] MEDS ORDERED: PROPOFOL IV EMULSION 10 MG/ML 20 ML VIAL IV ONE (08:26)
[2019-06-07] MEDS ORDERED: LARYING-O-JET KIT (LTA) ONE (08:26)
[2019-06-07] MEDS ORDERED: HYDROmorphone INJ 2 MG/ML SYR/VIAL ONE (08:26)
[2019-06-07] MEDS ORDERED: LIDOCAINE HCL 2% 2 ML VIAL/AMP(20MG/ML) INFIL ONE (08:26)
[2019-06-07] MEDS ORDERED: ePHEDrine sulfate 50 MG/ML SYR ONE (08:26)
--- NOTE | 2019-06-07 09:47 | Post Operative Brief Note ---
PG Immediate Post Op with CF Date of Surgery June 07, 2019 Pre & Post Diagnosis Operation Date: 06/07/19 07:30 Pre-Op Diagnosis: CERVICAL DISC HERNIATION Post-Op Diagnosis: CERVICAL DISC HERNIATION Procedure Operation Date: 06/07/19 07:30 Actual Procedures p C5-C6 Anterior Cervical Discectomy and Fusion, C6-C7 with Iliac Crest Bone Graft(Not Applicable) - Ayaan Soliman DO Surgeon Ayaan Soliman DO [employer] Agent arthur Estimated Blood Loss 5 Findings Consistent with Post-Op Diagnosis Specimens Specimen Description: NONE PER SURGEON [place] Catheter and [place] Drain (part of saul drain left in patient as drain per Dr. Soliman) Overlapping Procedure I was immediately available: during the entire case.
--- NOTE | 2019-06-07 09:48 | Fluoroscopy Report ---
FL spine 1V any level CLINICAL HISTORY: C5-C6 DISCECTOMY/FUSION COMPARISON STUDY: Outside x-ray dated 06/01/2019 FLUOROSCOPY TIME: 10 seconds. NUMBER OF FLUOROSCOPIC IMAGES: 2 FINDINGS: 2 intraoperative fluoroscopic spot images reveal postsurgical at the C5-7 level with an ant erior metallic plate. IMPRESSION: Postsurgical changes at the C5-7 level. Electronically signed by: Jassi Briggs M.D. 06/07/2019 9:46 AM
[2019-06-07] MEDS: fentaNYL citrate 100 MCG/2 ML VIAL IV PRN ×4 (10:03→10:18)
[2019-06-07] MEDS: HYDROmorphone INJ 2 MG/ML SYR/VIAL IV PRN ×4 (10:29→10:45)
--- NOTE | 2019-06-07 10:45 | Anesthesiology Progress Note ---
Date of Service June 07, 2019 Anesthesia Post Procedure Vital Signs Vital Signs: Temp Pulse Pulse Resp BP Pulse Ox 06/07/19 10:40 99 H 13 135/82 96 06/07/19 10:30 87 14 135/86 96 06/07/19 10:20 88 18 132/81 97 06/07/19 10:10 94 H 18 131/92 97 06/07/19 10:00 96 H 18 147/91 H 98 06/07/19 09:51 36.2 C L 98 H 18 155/97 H 97 06/07/19 07:12 37.2 C 88 18 149/98 H 95 Pain Intensity Bilateral Neck: Pain Intensity: 5 Transfer of Care Handoff Completed per policy Notes Mental Status: alert / awake / arousable and participated in evaluation Patient Amnestic to Procedure: Yes Nausea / Vomiting: adequately controlled Pain: adequately controlled Airway Patency, RR, SpO2: stable & adequate BP & HR: stable & adequate Hydration State: stable & adequate Anesthetic Complications: no major complications apparent and Pt Satisfied with anesthetic care
--- NOTE | 2019-06-07 10:49 | Operative Report ---
DATE OF OPERATION: 06/07/2019 PREOPERATIVE DIAGNOSES: 1. Cord compression. 2. Cervical spine disease at C5-C6 and C6-C7 cervical spine. POSTOPERATIVE DIAGNOSES: 1. Cord compression. 2. Cervical spine disease at C5-C6 and C6-C7 cervical spine. PROCEDURES: Included 1. Anterior cervical discectomy and fusion C5-C6 and C6-C7 cervical spine. 2. Left anterior iliac crest bone grafting and structural autograft. 3. Anterior plating of the system. DESCRIPTION OF PROCEDURE: The patient was seen and identified in the preop holding area and marked bridge note provided and brought back safely to the operating room. A general intubated anesthetic provided to the patient, then placed on the Alexandro table. Hill catheter administered. Antibiotics administered. We then positioned her cervical spine and extension, taped down her shoulders, scrubbed, prepped and draped sterile and commenced with surgery. A formal timeout taken. I made a skin incision, fascial incision. We were down to the anterior aspect of the spinal vertebral bodies fairly readily. I marked the C5-C6 interspace, verified on C-arm lateral imaging. I was able to then do a complete discectomy at C5-C6 and C6-C7. I was pleased with the decompression. All conceivable and visible disc material was retrieved. I was actually back in through the posterior longitudinal ligament, taking out disc material as well. I completed the foraminotomies of visibility was perfect. I was able to take off the cartilage off the endplates of the vertebral bodies. We then went down to the C6-C7 interval of the cervical spine. The same procedure was done, meticulous dissection and all disc and osteophyte removed. I then went to the left iliac crest, made a skin incision, fascial incision. I was able to retrieve a structural autograft from the left iliac crest. They measured approximately 7-7.5 mm in height, tapered to about 6 and they were approximately 15 mm in length. These were placed into discectomy sites at C5-C6 and C6-C7 cervical spine. We then chose a plate, this plate was placed over the anterior construct from C5 down to C7, transfixed with screws. This was verified on a lateral x-ray as well. I felt the positioning was superb. We then tightened down the construct. We then closed both layers of the cervical spine and closed over a Imani drain. Iliac crest we did not use a drain. We closed fascia to fascia with 1 Vicryl, 2-0 and 3-0 nylon on the iliac crest and the cervical spine closed in layered fashion. Sterile dressings applied. The areas were anesthetized with Marcaine prior to the patient being extubated. A cervical collar placed. The patient then extubated, returned to PACU improved, stable condition. No apparent complications. BLOOD LOSS: 5 mL. SURGEON: Ayaan Soliman DO AUTOMATIC GRINDER OPERATOR: Chris Rush PA-C. COUNTS: Sponge and needle count correct at the close. I attest to the content of the Intraoperative Record and any orders documented therein. Any exceptions are noted below. MTDD
[2019-06-07] MEDS ORDERED: ROPINIROLE HCL 1 MG TABLET PO PRN (11:36)
[2019-06-07] MEDS ORDERED: NALOXONE HCL 0.4 MG/1 ML VIAL/CARP IV PRN (11:36)
[2019-06-07] MEDS ORDERED: DO NOT ADMINISTER PNEUMOCOCCAL VACCINE PRN (11:36)
[2019-06-07] MEDS ORDERED: PROMETHAZINE HCL 12.5 MG in SODIUM CHLORIDE 0.9% 50 ML IV PRN (11:36)
[2019-06-07] MEDS ORDERED: ONDANSETRON 4 MG TAB PO PRN (11:36)
[2019-06-07] MEDS ORDERED: CETIRIZINE HCL 10 MG TABLET PO PRN (11:36)
[2019-06-07] MEDS ORDERED: MAGNESIUM HYDROXIDE SUSP 30 ML UDC PO PRN (11:36)
[2019-06-07] MEDS ORDERED: ACETAMINOPHEN 1,000 MG/100 ML VIAL IV PRN (11:36)
[2019-06-07] MEDS ORDERED: RACEPINEPHRINE 2.25% NEBU SOLN 0.5 ML VIAL INH PRN (11:36)
[2019-06-07] MEDS ORDERED: SOD PHOSPHATE/SOD BIPHOSPHATE ENEMA 132 ML BTL PR PRN (11:36)
[2019-06-07] MEDS ORDERED: FAMOTIDINE 20 MG TAB PO PRN (11:36)
[2019-06-07] MEDS ORDERED: ALUMINUM/MAGNESIUM SUSP 30 ML UDC PO PRN (11:36)
[2019-06-07] MEDS ORDERED: ALBUTEROL HFA 8 GM INHALER INH PRN (11:36)
[2019-06-07] MEDS ORDERED: DEXAMETHASONE SOD PHOSPHATE 8 MG in SYRINGE 0 ML IV PRN (11:36)
[2019-06-07] MEDS ORDERED: DO NOT ADMINISTER FLU VACCINE PRN (11:36)
[2019-06-07] MEDS: OXYCODONE HCL IR 5 MG TAB (IMMEDIATE RELEASE) PO PRN ×3 (12:13→20:08)
[2019-06-07] MEDS: SODIUM CHLORIDE 0.9% 1000ML 1,000 ML IV SCH (12:14)
[2019-06-07] MEDS: CEFAZOLIN 2000MG 2,000 MG/15 ML SYR IV SCH (16:07)
[2019-06-07] MEDS: ONDANSETRON INJ 2 MG/ML 2 ML VIAL IV PRN (16:17)
[2019-06-07] MEDS ORDERED: ARIPiprazole 10 MG TAB PO SCH (21:00)
[2019-06-07] MEDS: DOCUSATE SODIUM/SENNA 50/8.6MG TAB PO SCH ×2 (21:15→21:17)
[2019-06-07] MEDS: CALCIUM POLYCARBOPHIL 625MG TAB PO SCH (21:15)
[2019-06-07] MEDS: HYDROmorphone INJ 0.5 MG/0.5 ML SYR IV PRN ×2 (21:24→22:12)
[2019-06-08] MEDS: OXYCODONE HCL IR 5 MG TAB (IMMEDIATE RELEASE) PO PRN ×4 (00:13→12:05)
[2019-06-08] MEDS: ONDANSETRON INJ 2 MG/ML 2 ML VIAL IV PRN ×2 (00:15→11:10)
[2019-06-08] MEDS: CEFAZOLIN 2000MG 2,000 MG/15 ML SYR IV SCH (00:15)
[2019-06-08] MEDS: HYDROmorphone INJ 0.5 MG/0.5 ML SYR IV PRN ×3 (01:14→08:40)
[2019-06-08] MEDS: SODIUM CHLORIDE 0.9% 1000ML 1,000 ML IV SCH (01:14)
[2019-06-08] MEDS: CALCIUM POLYCARBOPHIL 625MG TAB PO SCH (08:09)
--- NOTE | 2019-06-08 08:19 | Anesthesiology Progress Note ---
Date of Service June 08, 2019 Anesthesia Post Procedure Vital Signs Vital Signs: Temp Pulse Pulse Pulse Resp BP Pulse Ox 06/08/19 07:15 80 16 95 06/08/19 06:17 36.8 C 88 16 144/86 H 95 06/08/19 04:38 36.8 C 91 H 20 153/91 H 97 06/08/19 03:50 103 H 18 97 06/08/19 02:30 36.8 C 88 18 153/90 H 97 06/08/19 00:30 36.9 C 88 18 160/90 H 97 06/07/19 23:18 36.6 C 90 20 161/95 H 94 06/07/19 23:10 99 H 18 97 06/07/19 20:04 36.7 C 92 H 16 155/90 H 96 06/07/19 19:40 103 H 18 97 06/07/19 18:51 90 16 154/96 H 96 06/07/19 16:30 99 H 16 139/87 97 06/07/19 15:30 110 H 18 97 06/07/19 14:10 36.6 C 110 H 18 137/86 95 06/07/19 13:17 36.5 C 107 H 20 132/80 95 06/07/19 12:20 109 H 18 126/84 96 06/07/19 12:14 101 H 18 96 06/07/19 11:53 113 H 16 95 06/07/19 11:50 106 H 18 135/85 95 06/07/19 11:20 36.7 C 111 H 16 149/89 H 4 L 06/07/19 11:00 36.9 C 97 H 94 H 117/81 94 06/07/19 10:50 91 H 94 H 117/85 94 06/07/19 10:40 99 H 13 135/82 96 06/07/19 10:30 87 14 135/86 96 06/07/19 10:20 88 18 132/81 97 06/07/19 10:10 94 H 18 131/92 97 06/07/19 10:00 96 H 18 147/91 H 98 06/07/19 09:51 36.2 C L 98 H 18 155/97 H 97 Pain Intensity Bilateral Neck: Pain Intensity: 6 Notes Mental Status: alert / awake / arousable and participated in evaluation Patient Amnestic to Procedure: Yes Nausea / Vomiting: adequately controlled Pain: adequately controlled Airway Patency, RR, SpO2: stable & adequate BP & HR: stable & adequate Hydration State: stable & adequate Anesthetic Complications: no major complications apparent and Pt Satisfied with anesthetic care
[2019-06-08] MEDS ORDERED: TRIAMCINOLONE ACET NASAL SPRAY 10.8ML BTL SCH (09:00)
[2019-06-08] MEDS ORDERED: VENLAFAXINE HCL XR 37.5 MG CAPXR PO SCH (09:00)
[2019-06-08] MEDS ORDERED: AMLODIPINE BESYLATE 5 MG TAB PO SCH (09:00)
[2019-06-08] MEDS ORDERED: LISINOPRIL/HCTZ 10/12.5MG TAB PO SCH (09:00)
[2019-06-08] MEDS ORDERED: POLYETHYLENE (MIRALAX) 17 GM PACK PO SCH (09:54)
[2019-06-09] MEDS ORDERED: bisacodyL 10 MG SUPP PR PRN (09:54)
--- NOTE | 2019-06-16 08:07 | Discharge Summary ---
Violetta was admitted to the hospital, discharged home in improved stable condition. She had complicated cervical spine surgery. She had an uneventful postoperative course. She had minimal complaints of pain, no dysphagia, shortness of breath, arm pain. Discharged home in improved stable condition. Followup examination in 1 week. Instructions given and precautions given multiple times.
== END 2019-06-08 12:35 | disposition home or self-care (01) ==
LOC: 3E 06:07 → ASU 06:07

== ENCOUNTER 2023-08-12 05:44 | Observation (INO) ==
--- NOTE | 2023-07-17 09:19 | PAT Medication Instructions ---
Medication Instructions Date of Service July 17, 2023 Home Medications Medication Instructions Recorded methocarbamol 750 mg tablet 750 mg PO TID PRN muscle spasm #14 02/19/22 tabs escitalopram oxalate 20 mg tablet 20 mg PO QAM #90 tabs 10/12/22 lamotrigine 100 mg tablet 100 mg PO HS #30 tabs 10/12/22 (Lamictal) promethazine 25 mg tablet 25 mg PO TID PRN nausea #14 tabs 05/04/23 galcanezumab-gnlm 300 mg/3 mL (100 300 mg (3 mL) subcut .COMPLEX #3 mL 05/21/23 mg/mL x 3) subcutaneous syringe (Emgality) pregabalin 150 mg capsule 150 mg PO QPM #30 caps 06/12/23 cholecalciferol (vitamin D3) 50 50 mcg PO DAILY #90 caps 06/30/23 mcg (2,000 unit) capsule albuterol sulfate 90 mcg/actuation aerosol inhaler 2 puff inhalation Q4H PRN lisinopril 10 mg-hydrochlorothiazide 12.5 mg tablet 1 tab PO QAM metformin 500 mg tablet 500 mg PO BID ropinirole 2 mg tablet 2 - 4 mg PO HS PRN rosuvastatin 20 mg tablet 20 mg PO HS diltiazem HCl 120 mg capsule,extended release 24 hr 120 mg PO QAM methocarbamol 750 mg tablet 750 mg PO TID PRN escitalopram oxalate 20 mg tablet 20 mg PO QAM lamotrigine 100 mg tablet (Lamictal) 100 mg PO HS escitalopram oxalate 10 mg tablet (Lexapro) 10 mg PO QAM ibuprofen 800 mg tablet 800 mg PO TID PRN promethazine 25 mg tablet 25 mg PO TID PRN galcanezumab-gnlm 300 mg/3 mL (100 mg/mL x 3) subcutaneous syringe (Emgality) 300 mg (3 mL) subcut .COMPLEX hydrocodone 5 mg-acetaminophen 325 mg tablet 1 tab PO TID PRN pantoprazole 40 mg tablet,delayed release (Protonix) 40 mg PO BID pregabalin 150 mg capsule 150 mg PO QPM cholecalciferol (vitamin D3) 50 mcg (2,000 unit) capsule 50 mcg PO DAILY ezetimibe 10 mg tablet 10 mg PO QAM Continue as directed galcanezumab-gnlm 300 mg/3 mL (100 mg/mL x 3) subcutaneous syringe (Emgality) 300 mg (3 mL) subcut .COMPLEX ASK your surgeon for instructions ibuprofen 800 mg tablet 800 mg PO TID PRN DO NOT take the morning of surgery lisinopril 10 mg-hydrochlorothiazide 12.5 mg tablet 1 tab PO QAM metformin 500 mg tablet 500 mg PO BID cholecalciferol (vitamin D3) 50 mcg (2,000 unit) capsule 50 mcg PO DAILY Take morning of surgery With a small sip of water, OTHERWISE NOTHING TO EAT OR DRINK AFTER MIDNIGHT: albuterol sulfate 90 mcg/actuation aerosol inhaler 2 puff inhalation Q4H PRN(use if needed; please bring with you to hospital day of surgery if possible) diltiazem HCl 120 mg capsule,extended release 24 hr 120 mg PO QAM methocarbamol 750 mg tablet 750 mg PO TID PRN(if needed) escitalopram oxalate 20 mg tablet 20 mg PO QAM escitalopram oxalate 10 mg tablet (Lexapro) 10 mg PO QAM promethazine 25 mg tablet 25 mg PO TID PRN(if needed) hydrocodone 5 mg-acetaminophen 325 mg tablet 1 tab PO TID PRN(if needed) pantoprazole 40 mg tablet,delayed release (Protonix) 40 mg PO BID ezetimibe 10 mg tablet 10 mg PO QAM Take evening before surgery albuterol sulfate 90 mcg/actuation aerosol inhaler 2 puff inhalation Q4H PRN(if needed) metformin 500 mg tablet 500 mg PO BID ropinirole 2 mg tablet 2 - 4 mg PO HS PRN(if needed) rosuvastatin 20 mg tablet 20 mg PO HS methocarbamol 750 mg tablet 750 mg PO TID PRN(if needed) lamotrigine 100 mg tablet (Lamictal) 100 mg PO HS promethazine 25 mg tablet 25 mg PO TID PRN(if needed) hydrocodone 5 mg-acetaminophen 325 mg tablet 1 tab PO TID PRN(if needed) pantoprazole 40 mg tablet,delayed release (Protonix) 40 mg PO BID pregabalin 150 mg capsule 150 mg PO QPM Other Notes If you have any questions please call us at [phone] or [phone] or [phone] or [phone]
--- NOTE | 2023-08-07 10:34 | Anesthesiology Consultation ---
Date of Service August 07, 2023 Assessment & Plan (1) Encounter for pre-operative examination: Chart Review Chart Review: Acceptable Risk for Surgery (pending anesthesiologist evaluation DOS ) and Patient seen in Pre Admission Testing - Discussed case with Dr. Chandler who recommends ENT input of soft palate mass/patient's ongoing symptoms and if patient is optimed/appropriate risk for cervical surgery and intubation/extubation. Per ENT (Dr Seymour) 08/08/23= "Please let him know I did not see anything on scope exam or on her hard palate that would coincide with an obstructive mass so I think she would be fine for general anesthesia. She has a repeat CT neck scheduled for August 20." Discussed further with Dr. Warren (anesthesiologist DOS)- who agrees patient can proceed as scheduled - Check BSG AM DOS - Check test AM DOS Per PAT appt on 07/29/23, no recent illness/disease exposures or recent illness/disease positive tests. Patient with chronic voice hoarseness. Has had cough x 3-4 weeks (seen by ENT and pulm; tested Covid negative in the ER 07/26/23). Cough due to chronic sinus issues. No acute issues per patient. Will leave to surgeon's discretion if preop Covid testing needed Patient seen by ENT 07/31/23= patient seen with mass on soft palate and hoarseness of her voice, neck swelling and recurrent ear infections, sinus infection, dysphagia and sudden weight gain. Had CT scan 07/24/2023. Has seen multiple CTs in the past. Nasal mucosa is inflamed bilaterally with clear drainage. Pooling of secretions in the piriform sinuses. Signs of Rainke's edema bilaterally which is consistent with her voice changes. No masses or lesions are identified. No definitive mass was seen intraorally or transn asally. Does have signs of irritation intraorally. Will get CT scan just to confirm that there is no mass or lesion that I am able to visualize. Do not think she would benefit from videostroboscopy. Also went over rinses for symptoms. Seen by pulmonology 07/15/2023 = patient with incidentally noted subpleural right lower lobe pulmonary nodule negative on PET scan. Lesion appears to be consistent with harmartoma as there was intralesional fat identified in the most recent scan. "Recommendations: Pulmonary nodule: The predominant pulmonary nodule appears to be most consistent with a hamartoma. The other pulmonary nodules are not big enough to be identified on the PET scan. Recommended the patient undergo follow-up CT scan in 1 years time. Smoking cessation was recommended the patient. Patient will follow-up with ENT regarding her hoarseness. Continue Ventolin on an as-needed basis. Influenza shot administered today. Follow up PRN with pulm MRI under sedation 03/20/2023 = done under MAC. Teaching & Discussion Pre-Anesthesia Teaching/Discussion Notes: Instructed NPO after midnight before surgery,except medications with 15 cc of water. Medication instructions provided according to the PAT guidelines. History Surgery Operation Date: 08/12/23 07:15 Proposed Procedures p C6-C7 Posterior Cervical Fusion with Instrumentation, Spinal Cord Monitoring - Chris Jerome MD Height/Weight Height: 5 ft 2 in Weight: 84.8 kg Allergies Allergy/AdvReac Type Severity Reaction Status Date / Time trazodone Allergy Severe Difficulty Verified 07/21/23 10:06 Breathing gabapentin AdvReac Intermediate Confusion Verified 07/21/23 10:06 lorazepam [From Ativan] AdvReac Intermediate Confusion Verified 07/21/23 10:06 Medications Home Medications Medication Instructions Recorded Confirmed Last Taken albuterol sulfate 90 mcg/actuation 2 puff inhalation Q4H PRN 05/22/19 07/21/23 03/20/23 06:30 aerosol inhaler Shortness Of Breath lisinopril 10 1 tab PO QAM 05/22/19 07/21/23 03/19/23 09:00 mg-hydrochlorothiazide 12.5 mg tablet metformin 500 mg tablet 500 mg PO BID 01/16/21 07/21/23 03/19/23 17:00 ropinirole 2 mg tablet 2 - 4 mg PO HS PRN RESTELSS LEG 01/18/21 07/21/23 03/19/23 19:00 rosuvastatin 20 mg tablet 20 mg PO HS 02/05/21 07/21/23 03/19/23 17:00 diltiazem HCl 120 mg 120 mg PO PM 02/19/22 08/07/23 03/19/23 17:00 capsule,extended release 24 hr methocarbamol 750 mg tablet 750 mg PO TID PRN muscle spasm #14 02/19/22 07/21/23 03/19/23 09:00 tabs escitalopram oxalate 20 mg tablet 20 mg PO QAM #90 tabs 10/12/22 07/21/23 03/19/23 09:00 lamotrigine 100 mg tablet 100 mg PO HS #30 tabs 10/12/22 07/21/23 03/19/23 17:00 (Lamictal) escitalopram oxalate 10 mg tablet 10 mg PO QAM 02/04/23 07/21/23 03/19/23 09:00 (Lexapro) ibuprofen 800 mg tablet 800 mg PO TID PRN Pain 02/04/23 07/21/23 03/20/23 05:00 promethazine 25 mg tablet 25 mg PO TID PRN nausea #14 tabs 05/04/23 07/21/23 Unknown galcanezumab-gnlm 300 mg/3 mL (100 300 mg (3 mL) subcut .COMPLEX #3 mL 05/21/23 07/21/23 Unknown mg/mL x 3) subcutaneous syringe (Emgality) hydrocodone 5 mg-acetaminophen 325 1 tab PO TID PRN Pain 05/21/23 07/21/23 Unknown mg tablet pantoprazole 40 mg tablet,delayed 40 mg PO BID 05/21/23 07/21/23 Unknown release (Protonix) pregabalin 150 mg capsule 150 mg PO QPM #30 caps 06/12/23 07/21/23 Unknown cholecalciferol (vitamin D3) 50 50 mcg PO DAILY #90 caps 06/30/23 07/21/23 Unknown mcg (2,000 unit) capsule ezetimibe 10 mg tablet 10 mg PO QAM 07/15/23 07/21/23 Unknown Past Medical History Medical History Diabetes Per PCP records On Metformin 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 Jannie's edema of vocal folds... upper aerodigestive tract mucosa is very erythematous and inflamed [sic] coupled with the Ranke's edema that has developed secondary to her smoking... vocal cord dysfunction... would also like her to see our victim advocate in addition to our speech therapists..." Cervical radiculopathy Cervical stenosis of spine Post traumatic stress disorder Anxiety and depression Hyperlipidemia Allergy-induced asthma Insomnia disorder Hemicrania continua Cervico-brachial neuralgia TMJ click no locking Fibromyalgia GERD (gastroesophageal reflux disease) Well controlled and stable Bipolar disorder Tobacco abuse HTN (hypertension) RLS (restless legs syndrome) Exercise / Class Metabolic Activity III < 4 Walking/Shop/Light housework (no chest pain or SOB with flat surface ambulation ) Past Family History Family History Mother Cancer Father Hypertension Sister Mood disorder Other No family history of adverse response to anesthesia No pertinent family history Past Surgical History Surgical History History of MRI MRI with sedation (03/20/23): MAC at [facility] History of cervical cerclage History of cervical spinal arthrodesis S/P cervical spinal fusion ACDF (06/07/19): Glidescope intubation, "atraumatic" at [facility] [place] teeth removed History of ovarian cystectomy History of delivery x1 History of colonoscopy Past Anesthesia History No Hx of Anesthesia Complications and No Family Hx of Anesthesia Complications History of PONV No Hx of Motion Sickness and History of PONV (remote history - years ago ) Social History Smoking Status: Current every day smoker tobacco type: cigarettes Smoking cigarettes per day: was 10 per day-- currently trying to quit- down to 4 cigs daily- advised Do You Dip or Chew Tobacco: No Hx Alcohol Use: No (heavy alcohol use in the past - no alcohol per 8 years per patient ) Hx Substance Use: No substance use type: does not use Review of Systems - Chronic coughing, post nasal drip and sinus pressure since mid Jul 2023- mild SOB with coughing - Hx of snoring - no hx of sleep study Patient denies chest pain, dyspnea on exertion, wheezing, palpitations. No hx of seizures, stroke, NC. No hx of blood clots or blood transfusions Physical Exam Vital Signs VITALS BP 145/73 P 96 TEMP 97.7 SP02 94% RESP 16 Constitutional no acute distress ENMT Mouth: no TMJ clicking Thyromental Distance: > or= 3.5 Finger Breadths (3.5) Mallampati Class: II Neck + limited neck extension Respiratory normal respiratory effort; no respiratory distress Auscultation: lungs clear to auscultation bilaterally; no wheezes Cardiovascular Rate/Rhythm: regular rate and regular rhythm Heart Sounds: no murmur Vessels: no carotid bruit Musculoskeletal Spine: + pain with cervical ROM Extremities: extremities normal to inspection Psychiatric Orientation: alert Lab Results Anesthesia Preop Results Results Anesthesia Widget: WBC 7.79 K/ul (4.8-10.8) 08/07/23 Hgb 13.7 g/dl (12.0-16.0) 08/07/23 Hct 40.3 % (37.0-47.0) 08/07/23 Plt 289 K/uL (130-400) 08/07/23 Na 132 mmol/L (136-145) L 07/26/23 K 4.3 mmol/L (3.5-5.1) 07/26/23 Cl 99 mmol/L (98-107) 07/26/23 CO2 24 mmol/L (21-32) 07/26/23 BUN 9 mg/dl (6-23) 07/26/23 Creat 0.46 mg/dl (0.6-1.2) L 07/26/23 Glucose Level 169 mg/dl (70-99(Fasting)) H 07/26/23 PT 9.8 Seconds (9.0-12.0) 08/07/23 PTT 27 Seconds (21-31) 08/07/23 INR 0.9 (0.9-1.1) 08/07/23 HA1c 8.9 % (4.5-5.6) H 08/07/23 Blood Type O Negative 08/07/23 Antibody Screen NEGATIVE 08/07/23 Testing Laboratory Results Surgeon's office informed of Hgb A1C Electrocardiogram Date: 08/07/23 Findings: + NSR @ (98bpm) Normal EKG per cardio Chest X-Ray Date: 08/07/23 Findings: + NAD Stress Test Date: 06/03/19 Exercise METS 11 MPHR 93% Negative for inducible ischemia Normal LV wall motion EF 55-59% Mild cLVH No significant valvular disease Pulmonary Function Test Date: 07/09/23 Mild airflow obstruction without significant bronchodilator response. Lung volumes are normal based on nitrogen washout. Diffusion capacity lower limits of normal. Other Testing Soft Tissue Neck CT 07/26/23= Mucosal irregularity, thickening, and hyperen hancement within the proximal hypopharynx at the level of the uvula and palatine tonsils. The uvula is also thickened. This may represent a nonspecific pharyngitis. A mucosal lesion could also have a similar appearance. Therefore, direct visualization recommended. No loculated fluid collections to suggest an abscess. Chest CT 07/11/23= 14 mm nodule in the right lower lobe contains intralesional fat and may possibly represent a benign lesion such as hamartoma. Stable 5 mm nodules in the left lower lobe are favored to be benign. Emphysema. (Reviewed by pulm)
[2023-08-12] MEDS ORDERED: LR 15ML/HR IV SCH (06:00)
[2023-08-12] MEDS ORDERED: LR 60ML/HR IV SCH (06:00)
[2023-08-12] MEDS ORDERED: ceFAZolin 2000MG 2,000 MG/15 ML SYR IV SCH (06:00)
[2023-08-12] MEDS ORDERED: PROMETHAZINE HCL 12.5 MG in SODIUM CHLORIDE 0.9% 50 ML IV PRN ×2 (06:46→09:56)
[2023-08-12] MEDS ORDERED: ePHEDrine sulfate 50 MG/ML AMP IV PRN (06:46)
[2023-08-12] MEDS ORDERED: ATROPINE SULFATE 0.1 MG/ML 10ML SYR IV PRN (06:46)
[2023-08-12] MEDS ORDERED: MIDAZOLAM HCL 1 MG/ML 2ML VIAL ONE (06:48)
[2023-08-12] MEDS ORDERED: fentaNYL citrate PF 100 MCG/2 ML VIAL ONE ×2 (06:49→09:36)
--- NOTE | 2023-08-12 07:00 | History & Physical Bridge Note ---
Date of Service August 12, 2023 History & Physical Bridge Note I have examined the patient, reviewed the History & Physical and in the interval since the performance of the History & Physical I have noted the following changes of clinical significance: no changes noted
[2023-08-12] MEDS ORDERED: ROCURONIUM BROMIDE 10 MG/ML 5 ML VIAL IV ONE ×2 (07:01→08:36)
[2023-08-12] MEDS ORDERED: ONDANSETRON INJ 2 MG/ML 2 ML VIAL ONE (07:01)
[2023-08-12] MEDS ORDERED: DEXAMETHASONE SOD INJ 4 MG/ML VIAL ONE (07:01)
[2023-08-12] MEDS ORDERED: PROPOFOL IV EMULSION 10 MG/ML 20 ML VIAL IV ONE (07:01)
[2023-08-12] MEDS ORDERED: SUCCINYLCHOLINE CHLORIDE 20 MG/ML 10 ML VIAL IV ONE (07:01)
[2023-08-12] MEDS ORDERED: LIDOCAINE 2% 2 ML VIAL/AMP(20MG/ML) INFIL ONE (07:01)
[2023-08-12] MEDS ORDERED: REMIFENTANIL HCL 1 MG VIAL IV ONE (07:05)
[2023-08-12] MEDS ORDERED: DexMEDEtomidine HCL IV 100 MCG/ML VIAL IV ONE (07:06)
[2023-08-12] MEDS ORDERED: BUPIVACAINE 0.5 % 5 MG/1 ML MPF 30ML VIAL ONE (07:15)
[2023-08-12] MEDS ORDERED: THROMBIN 5000 UNITS KIT ONE (07:15)
[2023-08-12] MEDS ORDERED: GELATIN SPONGE SZ 100 ONE (07:15)
[2023-08-12] MEDS: VANCOMYCIN HCL 1000MG/20ML VIAL ONE ×2 (08:25→09:31)
[2023-08-12] MEDS ORDERED: GLYCOPYRROLATE 0.2 MG/ML VIAL ONE (08:36)
[2023-08-12] MEDS ORDERED: EPINEPHrine INJ 1 MG/ML AMP ONE (08:37)
[2023-08-12] MEDS ORDERED: BUPIVACAINE/EPINEPHRINE 0.5% MPF 1:200,000 30 ML VIAL ONE (08:42)
[2023-08-12] MEDS ORDERED: ePHEDrine sulfate 50 MG/5 ML SYR ONE (08:43)
[2023-08-12] MEDS ORDERED: diphenhydrAMINE 50 MG/ML VIAL ONE (08:58)
[2023-08-12] MEDS ORDERED: PHENYLEPHRINE HCL 10 MG/ML VIAL ONE (08:58)
[2023-08-12] MEDS ORDERED: SUGAMMADEX SODIUM 200 MG/2 ML VIAL IV ONE (09:24)
--- NOTE | 2023-08-12 09:49 | Post Operative Brief Note ---
PG Immediate Post Op with CF Date of Surgery August 12, 2023 Pre & Post Diagnosis Operation Date: 08/12/23 07:15 <No data on this case meets the specified criteria> I identified the patient and participated in the time-out.: Yes Procedure Operation Date: 08/12/23 07:15 <No data on this case meets the specified criteria> Surgeon Chris Jerome MD [employer] P[employer] Co[employer] Operator Helper none Estimated Blood Loss 5 Findings Consistent with Post-Op Diagnosis Specimens Specimen Description: No specimen per surgeon [place] Catheter (Inserted by Sarahy Fowler RN prior to procedure start; 10cc in balloon; clear, yellow urine returned)
[2023-08-12] MEDS ORDERED: dexAMETHasone 8 MG in SYRINGE 0 ML IV PRN (09:56)
[2023-08-12] MEDS ORDERED: FAMOTIDINE 20 MG TAB PO PRN (09:56)
[2023-08-12] MEDS ORDERED: bisacodyL 10 MG SUPP PR PRN (09:56)
[2023-08-12] MEDS ORDERED: SOD PHOSPHATE/SOD BIPHOSPHATE ENEMA 132 ML BTL PR PRN (09:56)
[2023-08-12] MEDS ORDERED: ONDANSETRON INJ 2 MG/ML 2 ML VIAL IV PRN (09:56)
[2023-08-12] MEDS ORDERED: NALOXONE HCL 0.4 MG/1 ML VIAL/CARP IV PRN (09:56)
[2023-08-12] MEDS ORDERED: ACETAMINOPHEN 500 MG TAB PO PRN (09:56)
[2023-08-12] MEDS ORDERED: RACEPINEPHRINE 2.25% NEBU SOLN 0.5 ML VIAL INH PRN (09:56)
[2023-08-12] MEDS ORDERED: ONDANSETRON 4 MG OD TAB PO PRN (09:56)
[2023-08-12] MEDS ORDERED: HYDROmorphone INJ 0.5 MG/0.5 ML SYR IV PRN (09:56)
[2023-08-12] MEDS ORDERED: DO NOT ADMINISTER FLU VACCINE PRN (09:56)
[2023-08-12] MEDS ORDERED: METOCLOPRAMIDE HCL INJ 5 MG/ML 2 ML VIAL IV PRN (09:56)
[2023-08-12] MEDS ORDERED: ALUMINUM/MAGNESIUM SUSP 30 ML UDC PO PRN (09:56)
[2023-08-12] MEDS ORDERED: ACETAMINOPHEN 1,000 MG/100 ML VIAL IV PRN (09:56)
[2023-08-12] MEDS ORDERED: LORazepam 0.5 MG in SYRINGE 0.25 ML IV PRN (09:56)
[2023-08-12] MEDS ORDERED: hydrOXYzine HCl 25 MG TAB PO PRN (09:56)
[2023-08-12] MEDS ORDERED: MAGNESIUM HYDROXIDE SUSP 30 ML UDC PO PRN (09:56)
[2023-08-12] MEDS ORDERED: DO NOT ADMINISTER PNEUMOCOCCAL VACCINE PRN (09:56)
[2023-08-12] MEDS ORDERED: oxyCODONE HCL IR 5 MG TAB (IMMEDIATE RELEASE) PO PRN (09:56)
[2023-08-12] MEDS ORDERED: diphenhydrAMINE Capsule 25 MG CAP PO PRN (09:56)
[2023-08-12] MEDS ORDERED: LORazepam 0.5 MG TAB PO PRN (09:56)
[2023-08-12] MEDS ORDERED: LACTATED RINGER'S 1,000 ML IV SCH (10:00)
[2023-08-12] MEDS: HYDROmorphone INJ 1 MG/ML SYRINGE IV PRN ×6 (10:10→11:07)
[2023-08-12] MEDS ORDERED: SODIUM CHLORIDE 0.9% 50 ML BAG ONE (10:28)
[2023-08-12] MEDS ORDERED: PROMETHAZINE HCL INJ 25 MG/ML 1 ML VIAL ONE (10:29)
--- NOTE | 2023-08-12 11:08 | Anesthesiology Progress Note ---
Date of Service August 12, 2023 Anesthesia Post Procedure Vital Signs Vital Signs: Temp Pulse Pulse Resp BP BP Pulse Ox 08/12/23 10:45 104 H 22 115/81 88 L 08/12/23 10:35 105 H 17 115/70 91 08/12/23 10:25 105 H 21 111/73 92 08/12/23 10:15 108 H 23 127/78 92 08/12/23 10:05 115 H 21 124/84 96 08/12/23 09:58 36.6 C 110 H 18 132/84 92 08/12/23 06:27 08/12/23 06:13 37.2 C 95 H 18 153/81 H 95 O2 Del Method O2 Flow Rate 08/12/23 10:45 Room Air 08/12/23 10:35 Room Air 08/12/23 10:25 Room Air 08/12/23 10:15 Nasal Cannula 2 08/12/23 10:05 Nasal Cannula 2 08/12/23 09:58 Room Air 08/12/23 06:27 Room Air 08/12/23 06:13 Room Air Pain Intensity Neck: Pain Intensity: 7 Posterior Neck: Pain Intensity: 4 Transfer of Care Handoff Completed per policy Notes Mental Status: alert / awake / arousable Patient Amnestic to Procedure: Yes Nausea / Vomiting: adequately controlled Pain: adequately controlled Airway Patency, RR, SpO2: stable & adequate BP & HR: stable & adequate Hydration State: stable & adequate Anesthetic Complications: no major complications apparent and Pt Satisfied with anesthetic care
--- NOTE | 2023-08-12 11:12 | Fluoroscopy Report ---
FL cervical 2-3V CLINICAL HISTORY: C6-C7 POSTERIOR CERVICAL FUSION COMPARISON STUDY: Cervical spine CT 06/16/2023. FLUOROSCOPY TIME: 2 minutes and 28 seconds. FLUOROSCOPY IMAGES: 10 Ka,r: 25.8 mGy FINDINGS: Posterior fusion at the lower cervical spine. The exact levels are difficult to assess on t his spot image but suggest the C6-T1 levels. The hardware appears intact. IMPRESSION: Fluoroscopic assistance as above. ACT 112: Negative or not required by law. Electronically signed by: Zane Melgoza M.D. 08/12/2023 11:11 AM
[2023-08-12] MEDS ORDERED: rOPINIRole HCL 2 MG TABLET PO PRN (11:43)
[2023-08-12] MEDS ORDERED: GALCANEZUMAB GNLM SQ SCH (11:43)
[2023-08-12] MEDS ORDERED: METHOCARBAMOL 750 MG TABLET PO PRN (11:43)
[2023-08-12] MEDS ORDERED: PROMETHAZINE HCL 25 MG TAB PO PRN (11:43)
[2023-08-12] MEDS ORDERED: ALBUTEROL HFA 8 GM INHALER INH PRN (11:43)
[2023-08-12] MEDS ORDERED: [UNRECOGNIZED DRUG - OTHER] SQ SCH (11:43)
[2023-08-12] MEDS ORDERED: ceFAZolin 1000MG 1,000 MG/7.5 ML SYR IV SCH (16:00)
[2023-08-12] MEDS ORDERED: metFORMIN HCL 500 MG TAB PO SCH (17:00)
[2023-08-12] MEDS ORDERED: PREGABALIN 150 MG CAP PO SCH (19:00)
[2023-08-12] MEDS ORDERED: PANTOprazole 40 MG TAB PO SCH (21:00)
[2023-08-12] MEDS ORDERED: lamoTRIgine 100 MG TAB PO SCH (21:00)
[2023-08-12] MEDS ORDERED: DOCUSATE SODIUM/SENNA 50/8.6MG TAB PO SCH (21:00)
[2023-08-12] MEDS ORDERED: ROSUVASTATIN CALCIUM 20 MG TAB PO SCH (21:00)
[2023-08-12] MEDS ORDERED: dilTIAZem HCL 120 MG CAPCR PO SCH (21:00)
--- OUTSIDE RECORDS SUMMARY | 2023-08-13 00:45 | External Medical Summary | Summary of Care ---
Author Name Unknown Organization [facility] Address [address] [place] [address] Phone [phone] Care Team Providers Care Lathe Setup Operator Name Role Phone Unavailable Primary Care Provider Unavailabl e Reason for Visit * Reason Onset Date Comments Advice 08/08/2023 Encounter Details Date Type Department Care Team (Late st Contact Info) Description 08/08/2023 Telephone Otolaryngology [facility] [address] [place] [id number] Destinee Seymour MD [address] [place] [id number] Advice Allergies Active Allergy Reactions Criticality Noted Date Comments Dulaglutide Nausea/vomiting 07/31/2023 Gabapentin Psych complications 12/02/2018 Disoriented Lorazepam Psych complications 12/02/2018 Increases level of anxiety and feels loopy Trazodone 01/26/2019 documented as of this encounter (statuses as of 08/08/2023) Medications Medication Sig Dispensed Refills Start Date End Date Status Multiple Vitamins-Minerals (MULTI FOR HER) Tablet Take 1 Tab by mouth daily. 0 Active Melatonin 5 MG TabletIndications:t aking 10 mg Take 1 Tablet by mouth at bedtime. 0 Active pantoprazole (PROTONIX) 40 MG TBECIndications:Gas troesophageal reflux disease, esophagitis presence not specified Take 1 Tab by mouth daily. 90 Tab 1 02/11/2019 Active amLODIPine (NORVASC) 2.5 MG TabletIndications:E levated blood pressure reading Take 1 Tab by mouth daily. 90 Tab 3 07/22/2019 Active Lisinopril-hydroCHL OROthiazide 10-12.5 MG per tabletIndications:H TN, goal below 130/80 take 1 tablet by mouth daily 90 Tab 3 02/14/2020 Active ARIPiprazole (ABILIFY) 15 MG Tablet Take 1 Tablet by mouth every evening. 0 03/20/2020 Active hydrOXYzine pamoate (VISTARIL) 25 MG Capsule Take 1 Capsule by mouth at bedtime. 0 03/20/2020 Active amitriptyline (ELAVIL) 25 MG Tablet Take 1 Tablet by mouth at bedtime as needed. 0 03/20/2020 Active diclofenac sodium (VOLTAREN) 75 MG TBECIndications:Fib romyalgia Take 1 Tab by mouth 2 times a day as needed for Pain. With food. 60 Tab 3 03/29/2020 Active escitalopram (LEXAPRO) 10 MG Tablet Take 1 Tablet by mouth in the morning. In the morning. Take with 5 mg total of 15 mg. 0 05/12/2020 Active Escitalopram Oxalate (LEXAPRO) 5 MG Tablet Take 1 Tablet by mouth in the morning. In the morning.. 0 05/12/2020 Active guaiFENesin-Codeine 100-10 MG/5ML Oral Syrup (ROBITUSSIN AC)Indications:Coug h Take 5 mL by mouth 3 times a day as needed for Cough. 120 mL 0 06/03/2020 Active Additional Information Patient not taking.Reported on 06/09/2020 Albuterol Sulfate HFA 108 (90 Base) MCG/ACT Inhalation Aerosol SolutionIndications :Cough Inhale 2 Puffs by mouth every 4 hours as needed for Cough, Shortness of Breath or Wheezing (and with bronchitis infections). 18 g 0 06/03/2020 Active rOPINIRole HCl 2 MG Oral TabletIndications:R estless leg syndrome Take 2 Tabs by mouth at bedtime. 1-3 hours before bedtime with food for restless legs 180 Tab 1 07/18/2020 Active Vitamin D3 50 MCG (2000 UT) Oral Tablet Take 1 Tablet by mouth in the morning. 0 07/01/2023 Active dilTIAZem HCl ER Coated Beads 180 MG Oral Capsule Extended Release 24 Hour (Cardizem CD) Take 1 Capsule by mouth. 0 07/18/2023 Active Ezetimibe 10 MG Oral Tablet (Zetia) Take 1 Tablet by mouth in the morning. 0 Active HYDROcodone-Acetami nophen 5-325 MG Oral Tablet take 1 tablet by mouth three times a day for 30 DAYS if needed for SEVERE pain (PAIN SCALE 7-10) 0 Active lamoTRIgine 100 MG Oral Tablet (LaMICtal) Take 1 Tablet by mouth in the morning. 0 Active Lisinopril 20 MG Oral Tablet (Prinivil) Take 1 Tablet by mouth in the morning. 0 Active metFORMIN HCl ER 500 MG Oral Tablet Extended Release 24 Hour (Glucophage XR) Take 2 Tablets by mouth in the morning and 2 Tablets before bedtime. 0 06/27/2023 Active Rosuvastatin Calcium 20 MG Oral Tablet (Crestor) 1 Tablet. 0 01/14/2023 10/11/2023 Active Azelastine HCl 0.1 % Nasal Solution (Astelin) Administer 1 [place] into nostril in the morning and 1 [place] before bedtime. 30 mL 12 07/31/2023 Active Fluticasone Propionate 50 MCG/ACT Nasal Suspension (Flonase) Administer 2 Sprays into each nostril in the morning. 2 Each 0 07/31/2023 10/29/2023 Active documented as of this encounter (statuses as of 08/08/2023) Active Problems Problem Noted Date Diagnosed Date Bronchitis, complicated 06/03/2020 Bipolar disorder 05/18/2020 Cervicalgia 01/26/2019 HTN, goal below 130/80 12/16/2018 Radicular pain in left arm 11/26/2018 Personal history of alcoholism 05/03/2018 Rhinitis, nonallergic 06/18/2017 Tobacco use disorder 06/18/2017 Arthralgia of left temporomandibular joint 05/06 Hypertrophy of both inferior nasal turbinates Deviated nasal septum 05/06/2017 ADVANCE DIRECTIVE INFORMATION 12/11/2009 Overview: No, Advance Directive brochure given to patient at prior appt. Restless leg syndrome 12/01/2008 Overview: Restless leg syndrome. Interfering with sleep. Worsening. Advised: Continue Fe to correct anemia Continue with increased Folic acid Leg stretches before bedtime Rx: Pramipexole 0.125 mg daily -- will adjust dosage based or response O negative bloodtype with positive antibody scre en 10/08/2008 Overview: Rhogam @ 16 weeks due to sub chorionic bleed and will need at 28w Bipolar affective disorder in remission 09/05/19 Overview: Per MFM 09/02/08: On lexapro for depression. Reviewed reprotox info with her. No known risk for teratogenicity but if on in the third trimester there may be a risk for transient irritability, gi problems, and respiratory issues after delivery. Would use if benefits to Violetta felt to be worth the rare chance for the complications above. ICD-10 update of inactive term Anxiety state Migraine without aura Overview: Please do not prescribe narcotics or any controlled substances for this patient! Multiple joint pain Fibromyalgia documented as of this encounter (statuses as of 08/08/2023) Resolved Problems Problem Noted Date Diagnosed Date Resolved Date Mild persistent asthma without complication 06/18/2017 05/03/2018 Recurrent sinus infections 06/18/2017 0 05/03/2018 Chronic rhinitis 05/06/2017 06/18/2017 Cervical shortening, antepar jennifer condition or complication 11/21/2009 12/15/2017 Adverse effect of anesthesia 11/17/2009 08/23/2010 Overview: Nausea and vomiting after surgery ICD-10 update of inactive term Advanced cervical dilation @ 18 weeks; r/o PTL 11/16/2009 08/23/2010 Elderly multigravida 11/16/2009 018 Abnormal findings on screening 11/09/2009 12/15/2017 Overview: Increased risk t18 and SLO. Wants anatomy scan and then will plan amnio if malformations found. High-risk 11/02/2009 12/16/19 18 Antepartum placenta previa without hemorrhage 03/0408/23/2010 Overview: 6.7 mm from internal os. Cervix mildly short at 2.8 cms. Recommend tvs in 2 weeks. Diabetes mellitus of mother, complicating , childbirth, or the puerperium, unspecified as to episode of care(648.00) 11/02/2009 08/23/2010 Overview: Was borderline diabetic in last and now on high dose steroids. Early glucola elevated and will start using glucometer Transient thrombocytopenia 11/01/2009 12/15/2017 Overview: Hx of twins with Baby B who at 25 weeks. It had flat face, mild ventriculomegaly, large cisterna magna and pleural effusion seen at 20 weeks. Nml karyptype found Baby A developed Large cranial bleed with hydrocephalus found at 30 weeks. Delivered at 37 weeks and baby soon after delivery. Mom with HPA-1a antibodies. Dad is homzygote for HPA-1a antigen. Baby will be affected. Mother started on 2gm/kg /week IVIG ( to be arranged by Dr Elizabeth in [place]) and 1gm/kg orally daily of prednisone for rest of Plan [place] [facility] and after talking with Dr Teresa it would be beneficial to have mom donate plts prior to delivery to use in donation to the baby after delivery. Patient declines vaginal delivery since a pubs would be needed before hand. Wrote Dr Eaton a specialist and he recommends cutting the prednisone back to 0.5mg/kg/day at this time. Since she declines a pubs he would deliver her by elective C/S after documenting lung maturity with an amnio at about 36 weeks. UTI -STREPTOCOCCUS, GROUP B 10/07/2009 08/23/2010 Overview: Possible UTI - continue Keflex 500 q6, repeat urinalysis, culture showed gbs colonization. Will need test of cure after treatment and then will need prophylaxis in labor. 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 Repeat CBC 3 weeks. Twin with lo ss and retention of one fetus, antepartum 11/24/2008 11/01/2009 Unspecified abnormalit y affecting management of mother, antepartum condition or complication 11/10/2008 11/01/2009 Overview: Baby B is now a demise at 25 weeks Gestational DM 10/02/2008 11/01/2009 Overview: Dm educator/bobbin handler consult and currently diet controlled possible fibroid 09/05/2008 11/24/2008 Overview: Per MFM 09/02/08: US also showed a possible anterior fundal myometrial fibroid that is away from the placenta. I forgot to mention this to Violetta. Please review at her next exam with her. This can be reviewed at her next US to prove this is a fibroid and not a contraction. No fibroid seen on next scan 08/30/2008 11/24/2008 Supervision of high-risk pre gnancy of elderly multigravida 08/30/2008 11/01/2009 Overview: Nml amnio on both babies but possible syndrome suspected on baby B before it at 25 weeks.- It had flat face, mild ventriculomegaly, large cisterna magna and pleural effusion Twin , antepartum 08/30/2008 0 11/24/2008 Overview: Baby B Adjustment disorder with depressed mood 12/15/2017 TMJ (temporomandibular joint syndrome) 05/03/2018 Overview: Contributes to her HAs/migraines documented as of this encounter (statuses as of 08/08/2023) Immunizations Name Administration Dates Next Due H1N1 2009 Influenza, IM 10/17/2009 PPD 07/06/2016,06/25/2016,12/04/2006 Pneumococcal Polysaccharide PPV23 (Pneumovax) 11/01/2013 SEASONAL INFLUENZA, PF, 6 M & Above, IM , (FLULAVAL or FLUZONE) 05/27/2017 Seasonal Influenza, Split, I IV3, With Preserve, Inj 06/13/2014,06/17/2011,08/17/2010,10/17 TD, Preservative Free 12/10/2016 TDAP (age 11 and older)(Adacel) 12/04/2006 documented as of this encounter Social History Tobacco Use Types Packs/Day Years Used Date Smoking Tobacco: Every Day Cigarettes 0.8 23 Smokeless Tobacco: Never Comments:started age 18-had quit for approx 2 years Alcohol Use Standard Drinks/Week Comments No 0 (1 standard drink = 0.6 oz pur e alcohol) PHQ-2 Answer Date Recorded PHQ-2 Score -1 05/21/2020 Hunger Vital Sign Answer Date Recorded Worried About Running Out of Food in the Last Ye ar Never true 03/29/2020 Ran Out of Food in the Last Year Never true 03/29/2020 Sex and Gender Information Value Date Recorded Sex Assigned at Female 02/11/2019 9:52 AM EDT Gender Identity Female 02/11/2019 9:52 AM EDT Sexual Orientation Straight 02/11/2019 9: 52 AM EDT Job Start Date Occupation Industry Not on file Not on file Not on file documented as of this encounter Miscellaneous Notes * Telephone Encounter - Steffanie Blank LPN - 08/08/2023 2:59 PM EST Spoke to [facility] regarding Dr. Nunez note below. Sabi verbalized understanding and will discuss with Anaesthesia. * Telephone Encounter - Steffanie Blank LPN - 08/08/2023 2:56 PM EST I left a message on patient's answering machine asking patient to call us back. * Telephone Encounter - Destinee Seymour MD - 08/08/2023 11:27 AM EST Please let him know I did not see anything on scope exam or on her hard palate that would coincide with an obstructive mass so I think she would be fine for general anesthesia. She has a repeat CT neck scheduled for August 20. * Telephone Encounter - Steffanie Blank LPN - 08/08/2023 11:14 AM EST [facility] Anesthesia calling: Patient has a cervical spine surgery on 08/12/23 fusion of C6 and C7. Anesthesia reviewed office note from 07/31/2023. They would like your opinion if the patient is ok for surgery from an intubation and extubation stand point. Or should the patient hold off due to the softpalate mass noted. documented in this encounter Plan of Treatment Upcoming Encounters Date Type Department Care Team (Late st Contact Info) Description 08/20/2023 11:30 AM EST [facility] [address] [address] 12/09/2023 2:00 PM EDT Office Visit Otolaryngology [facility] [address] [address] Destinee Seymour MD [address] [place] [address] 12/09/2023 2:00 PM EDT Rehab Services Voice Lab [facility] [address] [address] Tejas Duque [facility] [address] [address] Health Maintenance Due Date Last Done Comments Hepatitis B (1 of 3 - 3-dose series) 1971 Albumin/Creatinine Ratio 12/05/1989 Hepatitis C Screening 12/05/1989 HPV/Co-Test 12/05/2001 Pneumococcal Vaccine: Pediatrics (0 to 5 Years) and At-Risk Patients (6 to 64 Years) (2 - PCV) 11/01/2014 11/01/2013 Cologuard 12/05/2016 Fecal Occult Blood Test 12/05/2016 Sigmoidoscopy 12/05/2016 Mammogram 05/13/2019 05/13/2018, 12/01, 12/18/2016, Additional history exists Cervical Cancer Screening 12/11/2019 Pap Smear 12/11/2019 12/10/2016, 11/30, 05/13/2012, Additional history exists Depression Screening 03/29/2021 03/29/2020 GFR 03/29/2021 03/29/2020, 040 05/2019, 05/13/2018, Additional history exists Zoster Vaccines (1 of 2) 12/05/2021 COVID-19 Vaccine ( season) 2023 08/23/2021, 2020, 11/13/2020 Influenza Vaccine (FLU shot) (#1) 2023 08/16/2019, 05/27/2017, 06/13/2014, Additional history exists Lipid Panel 05/13/2023 05/13/2018, 03/14/2014 Colonoscopy 01/07/2026 01/08/2016, 01/08/2016 Colorectal Cancer Screening 01/07/2026 DTaP,Tdap,and Td Vaccines (3 - Td or Tdap) 12/10/2026 12/10/2016, 12/04/2006 GARDASIL-HPV IMMUNIZATION SERIES Aged Out No longer eligible based on patient's age to complete this topic MENINGOCOCCAL (MENACTRA/MENVEO) Aged Out No longer eligible based on patient's age to complete this topic documented as of this encounter Medical Devices Not on filedocumented as of this encounter Advance Directives Latest Code Status on File Code Status Date Activated Date Inactivated Comments Full Code 12/19/2009 2:34 PM 12/21/2009 6:22 PM This order reflects the patients wishes and were consensually agreed upon. Code Status History Code Status Date Activated Date Inactivated Comments Full Code 11/16/2009 3:29 PM 11/18/2009 1:33 PM This order reflects the patients wishes and were consensually agreed upon. Full Code 11/01/2009 5:54 PM 11/03/2009 12:53 AM This o rder reflects the patients wishes and were consensually agreed upon. Full Code 11/24/2008 6:07 PM 11/25/2008 2:33 PM
[2023-08-13] MEDS ORDERED: POLYETHYLENE (MIRALAX) 17 GM PACK PO SCH (06:00)
[2023-08-13] MEDS ORDERED: LISINOPRIL/HCTZ 10/12.5MG TAB PO SCH (09:00)
[2023-08-13] MEDS ORDERED: ESCITALOPRAM OXALATE 20 MG TAB PO SCH (09:00)
[2023-08-13] MEDS ORDERED: EZETIMIBE 10 MG TAB PO SCH (09:00)
[2023-08-13] MEDS ORDERED: CHOLECALCIFEROL 1,000 UNITS 25 MCG TAB PO SCH (09:00)
[2023-08-13] MEDS ORDERED: ESCITALOPRAM OXALATE 10 MG TAB PO SCH (09:00)
--- NOTE | 2023-08-13 16:29 | Discharge Summary ---
Date of Service August 13, 2023 Admission HPI (Per Admitting) Cervical fusion pseudoarthrosis. Principal Diagnosis Same as "Discharge Diagnosis" noted below under Discharge Instructions. Discharge Data Consultations 08/12/23 10:01 Consult Hospitalist Routine Procedures Performed Operation Date: 08/12/23 07:15 Actual Procedures p C6-C7 Posterior Cervical Fusion with Instrumentation and Spinal Cord Monitoring(Not Applicable) - Chris Jerome MD Ordered Studies 08/12/23 07:00 FL cervical 2-3V Routine Hospital Course (1) Pseudarthrosis after fusion or arthrodesis: Posterior cervical fusion C6-7. (2) Neck pain with history of cervical spinal surgery: PG Care Time/CCT Total # of Minutes Spent Total Time Spent with Patient: Total time spent is greater than 50% in coordination of care (as documented) at patient's floor/unit and/or counseling patient: Discharge Plan Discharge Items Patient Disposition: Home - Self-Care Reason For Visit: Cervical Radiculopathy, Pseudarthrosis After Fusio Discharge Diagnosis: same Activity: Per Instructions section Lifting: No more than 10 pounds Bathing: Keep incision dry and May shower/bathe in 3 days Weightbearing: Full weightbearing Non-emergency contact: Surgeon Call non-emergency contact if: your temperature is above 101.5, your wound has increased redness and your wound has increased drainage Follow-up/Referrals: Chris Jerome MD [Surgeon] - (2 Weeks Post Op) Dayana Lizarraga DO [Primary Care Provider] - Diet: Regular Addtl Attending Provider Instructions: Please follow Dr. Jerome Post Operative Instructions that were given in the office upon scheduling surgery. -Use Soft Cervical Collar as directed. -Keep Surgical site dry for the next 3 days. -May shower after 3 days with no soaking of the surgical site -May leave surgical site open to air if dry. -Cover the surgical site with a bandage if draining or getting caught on clothes. -Take it easy for the next 2 weeks. (Ex: No Lifting, running, bending, or twisting, etc.). -You will F/u with Dr. Jerome in 2 weeks for postoperative care. -If any questions or concerns in the mean time, Reach out to [facility] [place] Orthopedics at [phone] Pending Studies at Discharge: No Stand-Alone Forms: Anesthesia/Sedation, Adult, [facility], Smoking Cessation Medications and DC Order Prescriptions: New oxycodone 5 mg/5 mL solution 5 mg PO Q8H PRN (Reason: pain) 5 Days Qty: 75 0RF Continued metformin 500 mg tablet 500 mg PO BID escitalopram oxalate 20 mg tablet 20 mg PO QAM Qty: 90 0RF lamotrigine [Lamictal] 100 mg tablet 100 mg PO HS Qty: 30 2RF Rx Instructions: (if you have lapsed on this medication do not restart before speaking w/ provider for retitration instructions) pregabalin 150 mg capsule 150 mg PO QPM Qty: 30 2RF Patient Comments: pt reports does not take anymore Rx Instructions: 150mg PO 2 hours before bedtime cholecalciferol (vitamin D3) 50 mcg (2,000 unit) capsule 50 mcg PO DAILY Qty: 90 3RF Emgality Syringe 300 mg/3 mL (100 mg/mL x 3) syringe 300 mg subcut .COMPLEX Qty: 3 3RF Hold Instructions: Home Medication placed on hold at Doctor's office Rx Instructions: ON HOLD 300 mg subcut every month until cluster headache resolves; pantoprazole [Protonix] 40 mg tablet,delayed release (DR/EC) 40 mg PO BID lisinopril-hydrochlorothiazide 10-12.5 mg tablet 1 tab PO QAM albuterol sulfate 90 mcg/actuation HFA aerosol inhaler 2 puff inhalation Q4H PRN (Reason: Shortness Of Breath) ropinirole 2 mg tablet 2 - 4 mg PO HS PRN (Reason: RESTELSS LEG) rosuvastatin 20 mg Tablet 20 mg PO HS diltiazem HCl 120 mg capsule,extended release 24hr 120 mg PO PM methocarbamol 750 mg tablet 750 mg PO TID PRN (Reason: muscle spasm) Qty: 14 0RF escitalopram oxalate [Lexapro] 10 mg tablet 10 mg PO QAM Rx Instructions: take with 20mg tab for total of 30mg daily ibuprofen 800 mg Tablet 800 mg PO TID PRN (Reason: Pain) promethazine 25 mg tablet 25 mg PO TID PRN (Reason: nausea) Qty: 14 0RF ezetimibe 10 mg tablet 10 mg PO QAM Discontinued hydrocodone-acetaminophen 5-325 mg tablet 1 tab PO TID PRN (Reason: Pain) Discharge Orders: Discharge Order (Routine); Ordered 08/12/23 Ordered By: Jem Zelaya/Other Patient Handouts: DVT Post Op Prevention Admission Data Admit Date/Time: 08/12/23 09:56 Attending Provider: Chris Jerome Admit Provider: Chris Jerome Primary Care Provider: Dayana Lizarraga Other Providers: Heber Moya; Anum Fisher; Josue Garcia; Ben Rose; Zoltan Tirado; Noman Alvarado; Shania Mcelroy; Katy Spann; Kassie Sarkar; Jhonny Hernández; Alber Duran; Anum Hooker; Lauren Valentine; Bong Brizuela; Josue Burns; Zane Obrien; Elsi Mcdonald; Renetta Fitzgerald; Abhi Logan; Carly Huber; Luther Hernadez; Jag Ambrose; Juliana Bird; Shankar Palaicos; Hailee Aguilar; Dayana Lizarraga; Kvng Brower; Alan Pandey; Ben Barclay; Zoltan Beltran Other Interventions: Discharge Summary Assessment (RN) Last Done: 08/12/23 14:28
--- NOTE | 2023-08-13 16:33 | Operative Report ---
PG Post Operative Report Pre & Post Diagnosis Operation Date: 08/12/23 07:15 Pre-Op Diagnosis: Cervical Radiculopathy, Pseudarthrosis After Fusion or Arthrodesis Post-Op Diagnosis: Cervical Radiculopathy, Pseudarthrosis After Fusion or Arthrodesis I identified the patient and participated in the time-out.: Yes Procedure Operation Date: 08/12/23 07:15 Actual Procedures p C6-C7 Posterior Cervical Fusion with Instrumentation and Spinal Cord Monitoring(Not Applicable) - Chris Jerome MD Surgeon Chris Jerome MD Slip Cover Maker none Estimated Blood Loss 5 Findings Consistent with Post-Op Diagnosis Specimens None Description of Procedure 1. Posterior cervical arthrodesis C6-7. (16207) 2. Posterior instrumentation C6-7, Corus. (45217) Procedure: Patient was taken the operating room after adequate anesthesia was carefully positioned prone on the OR table with padding to provide neutral alignment of the cervical spine, the arms and lower extremities were carefully positioned for the procedure. I then performed a preprepped, and then brought in fluoroscopy which was set up in the AP and lateral views with 2C arms. The midline was marked along with the facets on either side, and then confirmed the approximate location of C6-7 and potential location of the advancement of the insertion devices for the chorus instrumentation. Prep and drape was performed, and I began the procedure with first inserting a spinal needle advanced towards the C6-7 facet on the right side. Using fluoroscopic control AP and lateral views, advanced this towards the C6-7 level and confirmed the position on fluoroscopy. An incision approximately half inch in length longitudinally was made on the right side posteriorly and inferiorly to the C6-7 level, from here I advanced the initial access device and advanced this under fluoroscopic control to the C6-7 level. Once confirming position on AP and lateral views I then tapped it into position into the facet joint. This was then followed by the additional dilators/instruments first also decorticating some of the posterior inferior aspect of the C6 level and the superior C7, followed this with an additional rasp for the facet joint on either side, and then also the rotatory decorticate or. The instrumentation for the facet was obtained, demineralized bone matrix was then inserted into the device, and then I tapped this into position with excellent position on AP and lateral views. The remainder of the DBM was then placed and advanced into and around posterior facet, the access apparatus was then removed. Images were obtained showing proper location of the cage within the right C6-7 facet joint with elevation of the joint. The same procedure was then performed on the left side, for starting with the spinal needle, followed by the longitudinal incision and insertion of the first access device advanced into the C6-7 facet under fluoroscopic control without issue. This then followed with the decortication and the facet rasps, rotatory rasp. The instrumentation was inserted in a similar fashion with DBM placed within the cage and then additional placed afterwards. The access device was then removed final images were obtained, local was injected in around the insertion site followed by then closure with 2-0 Vicryl sutures, 3-0 Vicryl suture benzoin and Steri-Strips and a sterile dressing. Patient was taken recovery room saturated condition, no changes were noted by the monitoring system. I attest to the content of the Intraoperative Record and any orders documented therein. Any exceptions are noted below.
== END 2023-08-12 14:30 | disposition home or self-care (01) ==
LOC: ASU 05:44 → PACUINP 05:44